=== PATIENT | female | born 1940 | race Caucasian/White ===

== ENCOUNTER 2017-08-04 12:41 | Inpatient (IN) | payer OTHER ==
[~2017-08-04] VITALS: Ht 162.6 cm; Wt 81.8 kg
[~2017-08-04 12:41] MED LIST: AMILORIDE HCL-1 EACH PO; CLARITIN10 M1 PO; CYCLOBENZAPRINE10 M1 PO; GLIPIZIDE ER5 M1 PO; GLIPIZIDE10 MG PO; ISOSORBIDE MONO30 M1 PO; LEVSIN/SL0.125 MG PO; METOPROLOL TART25 M1 PO; NEURONTIN300 M1 PO; ONGLYZA5 MG PO; OXYBUTYNIN CHLOR5 M2 PO; OXYBUTYNIN5 MG PO; PERCOCET 325 MG1 TA2 PO; PROTONIX40 M3 PO; SIMVASTATIN20 MG PO; TRAMADOL HCL50 M1 PO
--- NOTE | 2017-08-04 13:57 | ED GI/GU/ABDOMINAL COMPLAINT ---
See Addendum History of Present Illness General Chief Complaint: General Adult Stated Complaint: +V ALL NIGHT, CHILLS, LOWER BACK PAIN Source: patient Exam Limitations: no limitations Vital Signs & Intake/Output Vital Signs & Intake/Output Vital Signs Date Time Temp Pulse Resp B/P B/P Pulse O2 O2 Flow FiO2 Mean Ox Delivery Rate 08/06 0850 98.4 77 18 138/62 98 Room Air 08/06 0848 77 138/62 08/06 0000 98.2 65 18 105/61 99 Room Air Room Air 08/05 2152 72 126/55 08/05 2151 72 16/55 08/05 1600 97.9 74 20 112/58 98 Room Air 08/05 1600 99 Room Air 08/05 1200 98 Room Air ED Intake and Output 08/06 0000 08/05 1200 Intake Total 1391 170 Output Total 1200 750 Balance 191 -580 Intake, IV 281 110 Intake, Oral 1110 60 Number 0 Bowel Movements Output, Urine 1200 750 Allergies Coded Allergies: adhesive tape (RASH 05/17/16) latex (RASH 05/17/16) Triage Note: C/O LOWER BACK PAIN, LEFT FLANK PAIN, N/V CHILLS. 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 yes LMP (ages 10-50): unknown ? N Is pt currently ? No Onset: Abrupt Duration: day(s): (1), better, continues in ED Timing: single episode today Quality/Severity: aching, moderate, vomiting Location: left flank Radiation: no radiation Activities at Onset: none Prior Abdominal Problems: none Past Sexual History: Unobtainable at this time No Modifying Factors: none Associated Symptoms: abdominal pain, nausea/vomiting HPI: 77 YEAR old female past medical history of hypertension, diabetes, coronary artery disease presents for evaluation of nausea vomiting and left flank/back pain. Patient states symptoms started last night. WHEN SYMPTOMS first started she notes that she had epigastric pressure nausea vomiting sweats and chills. This gradually improved and is now gone. She is still reporting some left flank and left lower back pain and mild nausea. She has only eaten and drank a small amount today. No vomiting today. Currently no chest pain or shortness of breath no sweats or chills no urinary symptoms hematuria or fever. She's not taking any medicine for her symptoms. (Patricio WEN,Yann) Reconcile Medications Amiloride/Hydrochlorothiazide (Amiloride HCl-Hctz 5-50 MG Tab) 5 MG-50 MG TABLET 1 TAB PO DAILY HEART/BP (Reported) Ascorbic Acid (Vitamin C) 500 MG CAPSULE.ER 1 CAP PO DAILY Supplement ( Reported) Cholecalciferol (Vitamin D3) (Vitamin D) 1,000 UNIT TABLET 1 TAB PO DAILY Supplement (Reported) Cyanocobalamin (Vitamin B-12) (Vitamin B-12) 500 MCG TABLET (Unknown Dose) PO DAILY VITAMIN SUPPORT (Reported) Cyclobenzaprine HCl 10 MG TABLET 1 TAB PO PRN MUSCLE SPASMS (Reported) Gabapentin (Neurontin) 300 MG CAPSULE 2 CAP PO BID-TID NEUROPATHY (Reported) Glipizide (Glipizide ER) 5 MG TAB.ER.24 1 TAB PO BID DM (Reported) Isosorbide Mononitrate (Isosorbide Mononitrate ER) 30 MG TAB.ER.24H 0.5 TAB PO DAILY Heart (Reported) Lutein 20 MG CAPSULE 20 MG PO DAILY VITAMIN SUPPORT (Reported) Metoprolol Tartrate 25 MG TABLET 0.5 TAB PO BID Blood pressure (Reported) Multivitamin (Daily Value) 1 EACH TABLET 1 TAB PO DAILY Supplement (Reported) Rawlins-3 Fatty Acids (Fish Oil Concentrate) 1,000 MG CAPSULE 1 CAP PO DAILY Heart (Reported) Oxybutynin Chloride 5 MG TABLET 1 TAB PO QPM BLADDER (Reported) Pantoprazole Sodium (Protonix) 40 MG TABLET.DR 1 TAB PO DAILY GERD (Reported) Psyllium Husk/Aspartame (Metamucil Sugar-Free Powder) 3.4 GRAM/5.8 GRAM POWDER 1 TBSP PO QHS BOWEL HEALTH (Reported) Simvastatin (Zocor*) 20 MG TABLET 1 TAB PO QPM Cholesterol (Reported) Tramadol HCl 50 MG TABLET 1-2 TAB PO BID PRN PAIN (Reported) Vitamin E (Dl,Tocopheryl Acet) (Vitamin E) 400 UNIT CAPSULE 1 CAP PO DAILY Supplement (Reported) (Nguyen WATSON,Melony) Past History Travel History Traveled to [place] past 21 day No Medical History Any Pertinent Medical History? see below for history Neurological: NONE EENT: NONE Cardiovascular: hypertension Respiratory: NONE Gastrointestinal: GERD Hepatic: NONE Renal: NONE Musculoskeletal: osteoarthritis Psychiatric: NONE Endocrine: diabetes, NODULE ON THYROID Blood Disorders: NONE Cancer(s): NONE CLINICAL PSYCHOLOGIST LICENSED/Reproductive: NONE Surgical History Surgical History: non-contributory Psychosocial History Who do you live with Spouse Services at Home None What is your primary language Iranian Tobacco Use: Never used ETOH Use: denies use Illicit Drug Use: denies illicit drug use Family History Hx Contributory? No (Yann Pearson) Review of Systems Review of Systems Constitutional: Reports: chills, diaphoresis. EENTM: Reports: no symptoms. Respiratory: Reports: no symptoms. Cardiovascular: Reports: no symptoms. GI: Reports: see HPI, abdominal pain, nausea, vomiting. Genitourinary: Reports: no symptoms. Musculoskeletal: Reports: see HPI, back pain. Skin: Reports: no symptoms. Neurological/Psychological: Reports: no symptoms. Hematologic/Endocrine: Reports: no symptoms. Immunologic/Allergic: Reports: no symptoms. All Other Systems: Reviewed and Negative (Yann Pearson) Physical Exam Physical Exam General Appearance: well developed/nourished, no apparent distress, alert, awake Head: atraumatic, normal appearance Eyes: Bilateral: normal appearance, PERRL, EOMI, normal inspection. Ears, Nose, Throat, Mouth: hearing grossly normal, moist mucous membrane Neck: normal inspection, supple, full range of motion Respiratory: normal breath sounds, chest non-tender, no respiratory distress, lungs clear Cardiovascular: regular rate/rhythm, normal peripheral pulses Peripheral Pulses: 2+ radial (R), 2+ radial (L) Gastrointestinal: normal bowel sounds, soft, no organomegaly, MILD LEFT FLANK AND LEFT LOWER BACK TENDERNESS NO REBOUND OR GUARDING Back: normal inspection, normal range of motion, no vertebral tenderness, LEFT- SIDED LUMBAR Extremities: normal range of motion Neurologic/Psych: no motor/sensory deficits, awake, alert, oriented x 3, normal gait Skin: intact, normal color, warm/dry Core Measures ACS in differential dx? Yes Sepsis Present: No Sepsis Focused Exam Completed? No (Yann Pearson) Progress Differential Diagnosis: AAA, AMI, biliary colic, bowel obstruction, diverticulitis, gastritis, hernia, ischemic bowel, inflamm bowel dis, kidney stone, pancreatitis, PID/cervicitis, peptic ulcer, PUD/GERD, SBO, UTI/pyelo Plan of Care: Orders Procedure Date/time Status PARTIAL THROMBOPLASTIN TIME 08/06 1230 Active Transfer Disposition 08/06 0740 Active ICU LAB BUNDLE 08/06 0500 Complete CBC WITHOUT DIFFERENTIAL 08/06 0500 Complete TROPONIN LEVEL 08/06 0030 Complete PARTIAL THROMBOPLASTIN TIME 08/06 0030 Complete EKG 08/06 003 Active Transfer patient to 08/05 1852 Active Current Medications Sig/Santo Start time Last Medication Dose Stop Time Status Admin Clopidogrel Bisulfate 75 MG DAILY 08/06 1000 AC 08/06 (Plavix) 0848 Lidocaine 1 PAT DAILY 08/06 0130 AC 08/06 (Lidoderm) 0130 Isosorbide 15 MG DAILY@2200 08/05 2200 AC 08/05 Mononitrate 2152 (Imdur) Lidocaine 1 PAT DAILY PRN 08/05 1815 AC 08/06 (Lidoderm) 0910 Aspirin 81 MG DAILY 08/05 1000 AC 08/06 (Aspirin) 0847 Insulin Aspart 0 TIDAC 08/05 0800 AC 08/05 (NovoLOG) 0806 Omeprazole 40 MG DAILY AC 08/05 0700 AC 08/06 (Prilosec) 0605 Atorvastatin Calcium 10 MG 1700 08/04 2245 AC 08/05 (Lipitor) 1805 Metoprolol Tartrate 12.5 MG BID 08/04 2200 AC 08/06 (Lopressor) 0848 Oxybutynin Chloride 5 MG QPM 08/04 2200 AC 08/05 (Ditropan) 2151 Fish Oil 1,050 MG DAILY 08/04 2105 AC 08/06 (Rawlins-3) 0848 Heparin Sodium 25,000 UNIT Q24H 08/04 1800 AC 08/04 (Porcine) 1911 (Heparin) Sodium Chloride 500 ML Laboratory Tests 08/06/17 0610: Anion Gap 9, Estimated GFR > 60, Glucose 137 H, Calcium 9.1, Phosphorus 4.0, Magnesium 1.8, Total Bilirubin 0.7, AST 32, ALT 25, Albumin 3.4 L, CBC w Diff NO MAN DIFF REQ, RBC 3.20 L, MCV 94.6, MCH 33.0 H, MCHC 34.9, RDW 13.5, MPV 7.8, Gran % 48.8, Lymphocytes % 35.8, Monocytes % 9.9 H, Eosinophils % 4.4, Basophils % 1.1, Absolute Granulocytes 1.2 L, Absolute Lymphocytes 0.9 L, Absolute Monocytes 0.2, Absolute Eosinophils 0.1, Absolute Basophils 0 08/06/17 0030: Troponin I 0.43 *H, APTT 66 H 08/05/17 1715: APTT 54 H, CBC w Diff NO MAN DIFF REQ, RBC 3.74 L, MCV 94.7, MCH 31.9 H, MCHC 33.7, RDW 14.2, MPV 7.9, Gran % 63.2, Lymphocytes % 23.9, Monocytes % 8.3, Eosinophils % 3.8, Basophils % 0.8, Absolute Granulocytes 2.0, Absolute Lymphocytes 0.8 L, Absolute Monocytes 0.3, Absolute Eosinophils 0.1, Absolute Basophils 0 08/05/17 1200: CBC w Diff Cancelled, WBC Cancelled, RBC Cancelled, Hgb Cancelled, Hct Cancelled , MCV Cancelled, MCH Cancelled, MCHC Cancelled, RDW Cancelled, Plt Count Cancelled, MPV Cancelled Patient seen and evaluated. Currently she is feeling much better only reporting mild nausea and mild left flank and left lower back pain. No chest pain or shortness of breath she was able to eat and drink a little bit today. Vital signs are stable. Blood work shows a troponin of 1.41. EKG is stable without ST or T-wave changes. Patient was given 325 of aspirin. Case discussed with Dr. Anderson who is the patient's can sorter he recommends admission to the ICU. Patient will have a CTA of the chest to rule out pulmonary embolism. WIll hold off on heparinizing until then. CT scan of the abdomen and pelvis shows mild haziness in the area of the sigmoid colon with a mild diverticulitis. Patient does not have any pain in this area. She is not having any diarrhea. We'll continue to monitor patient's abdomen and try and labs. Patient will require admission to the ICU for monitoring of vital signs, telemetry, trending troponin, serial EKGs, cardiology consult, anticoagulation medication adjustment. Case discussed with Dr. Cedillo she agrees. Dr. Cedillo talked with Dr. Price to admit the patient to the ICU. Initial ED EKG: normal sinus rhythm, no ST T wave changes, LEFT AXIS DEVIATION (Black PA,Yann) Diagnostic Imaging: Viewed by Me: CT Scan. Discussed w/RAD: CT Scan. Radiology Impression: PATIENT: HANY SIMMONS PRESENT AGE: 77 PATIENT ACCOUNT NO: [id number] : 41 LOCATION: [facility] ORDERING PHYSICIAN: Yann WEN SERVICE DATE: 08/04/17 EXAM TYPE: CAT - CT ABD & PELVIS W/O IV CONTRAS EXAMINATION: CT ABDOMEN AND PELVIS WITHOUT CONTRAST CLINICAL INFORMATION: Left flank pain, low back pain. Evaluate for kidney stones , pyelonephritis. COMPARISON: 07/14/2014 TECHNIQUE: Multidetector volumetric imaging was performed from the superior aspect of the liver through the pubic symphysis. Sagittal and coronal reformatted images were obtained on the technologist's workstation. FINDINGS: LUNG BASES: The visualized lung bases are unremarkable. LIVER, GALLBLADDER, AND BILIARY TREE: The liver is normal in size, shape, and attenuation. No focal hepatic lesion or biliary ductal dilatation is present. The gallbladder is not clearly visualized, and may be contracted or surgically absent. PANCREAS: Mild fatty atrophy of the pancreas, especially the pancreatic head, appearing similar as compared to previous. No yaritza inflammatory changes are evident in the noncontrast CT. SPLEEN: Unremarkable. ADRENAL GLANDS: Unremarkable. KIDNEYS AND URETERS: Right kidney surgically absent. No abnormal soft tissue in the surgical bed. Surgical clips are noted. Left kidney measures 13.4 cm craniocaudal, measured on the sagittal sequence. No calculi are seen. No suspicious lesions in the noncontrast study. Minimal nonspecific perinephric stranding. No ureteral calculi or hydronephrosis. BLADDER: Unremarkable. GASTROINTESTINAL TRACT: Colonic diverticulosis predominantly in the sigmoid colon. Mild haziness in the fat adjacent to the distal sigmoid colon in the pelvis, may reflect mild diverticulitis/colitis. No focal fluid collections. Stomach is nondistended. Normal caliber small bowel loops. Appendix appears unremarkable, containing air. ABDOMINAL WALL: No significant hernia is appreciated. Surgical clips deep to the anterior abdominal wall. LYMPH NODES: No pathologically enlarged lymph nodes are seen in the abdomen or pelvis. VASCULAR: Mild atherosclerotic calcification of the aorta. Normal caliber aorta. PELVIC VISCERA: Pelvic organs are atrophic or surgically absent. OSSEOUS STRUCTURES: Redemonstrated apparent postoperative changes of the spinous processes of L4 and L5. Facet degeneration in the lower lumbar spine. No suspicious lytic or blastic lesions identified. IMPRESSION: 1. Sigmoid diverticulosis. Mild haziness in the fat adjacent to the distal sigmoid colon may reflect mild diverticulitis/colitis. Clinically correlate. 2. Right kidney surgically absent. No evidence of left renal calculi, suspicious lesions, or hydronephrosis. 3. No acute findings otherwise demonstrated in the abdomen or pelvis. DICTATED BY: Negro Rider MD DATE/TIME DICTATED:08/04/171447 INVENTORY TAKER:ADAN DATE/TIME TRANSCRIBED:08/04/171447 CONFIDENTIAL, DO NOT COPY WITHOUT APPROPRIATE AUTHORIZATION. <Electronically signed in Other Vendor System> SIGNED BY: Negro Rider MD 08/04/17 7317 (Melony Cedillo MD) Departure Departure Disposition: STILL A PATIENT Condition: Stable Clinical Impression Primary Impression: Non-STEMI (non-ST elevated myocardial infarction) Referrals: Angelo Price MD (PCP/Family) Departure Forms: Customer Survey General Discharge Information Admission Note Spoke With: Angelo Price MD Documentation of Exam: Documentation of any treatments & extenuating circumstances including Concerns Regarding Discharge (functional status, medication knowledge or non-compliance, living conditions, etc.) that warrant an admission rather than observation: [ Serial troponins, serial EKGs, telemetry, cardiology consult, echocardiogram, cardiac cath, IV heparin] (Yann Pearson) PA/MECHANICAL ENGINEERING TECHNICIAN Co-Sign Statement Statement: ED Attending supervision documentation- [X] I saw and evaluated the patient. I have also reviewed all the pertinent lab results and diagnostic results. I agree with the findings and the plan of care as documented in the PA's/MECHANICAL ENGINEERING TECHNICIAN's documentation. [X] I have reviewed the ED Record and agree with the PA's/MECHANICAL ENGINEERING TECHNICIAN's documentation. [] Additions or exceptions (if any) to the PAs/MECHANICAL ENGINEERING TECHNICIAN's note and plan are summarized below: [] Patient seen and examined with the resident. Positive troponin after episode of epigastric/chest pain yesterday. No acute EKG changes to warrant Inspector [employer] transfer. Patient seen by Dr. Anderson in the ER who recommended ICU admission. CT chest and her grandma ordered. Discussed with Dr. Price. Currently patient has no chest pain shortness of breath. She denies any shoulder or neck pain which she had yesterday. She is well-appearing (Melony Cedillo MD)
[2017-08-04 13:59] LABS: ABSOLUTE BASOPHIL COUNT 0 /CUMM (0.0-0.2); ABSOLUTE EOSINOPHIL COUNT 0.1 /CUMM (0.0-0.7); ABSOLUTE GRANULOCYTE CT 3.4 /CUMM (1.4-6.5); ABSOLUTE LYMPH COUNT 0.6 /CUMM (1.2-3.4); ABSOLUTE MONOCYTE COUNT 0.3 /CUMM (0.10-0.60); BASOPHIL % 0.6 % (0.0-2.0); EOSINOPHIL % 1.3 % (0-5); GRANULOCYTE % 78.5 % (42.2-75.2); HEMATOCRIT 35.6 % (37-47); MEAN CORPUSCULAR HGB CONC 35.3 G/DL (33.0-37.0); MEAN CORPUSCULAR VOLUME 93.6 FL (81.0-99.0); MEAN PLATELET VOLUME 7.6 FL (7.4-10.4); PLATELET COUNT 195 /CUMM (130-400); RBC DISTRIBUTION WIDTH 13.7 % (11.5-14.5); RED BLOOD CELL CT 3.81 /CUMM (4.20-5.40); WHITE BLOOD CELL COUNT 4.3 /CUMM (4.8-10.8)
--- NOTE | 2017-08-04 15:33 | RADIOLOGY REPORT ---
EXAMINATION: XR PORTABLE CHEST CLINICAL INFORMATION: Positive troponin. COMPARISON: Chest radiograph 03/09/2016. TECHNIQUE: Portable frontal view of the chest was obtained. FINDINGS: The lungs are clear without consolidation, edema, or effusion. There is no pneumothorax. The cardiomediastinal silhouette appears normal. There are degenerative changes at the bilateral shoulder joints. IMPRESSION: No active disease in the chest.
[2017-08-04 15:51] LABS: PT 12.8 SEC (9.4-12.5); PTT 30 SEC (25-37)
--- NOTE | 2017-08-04 15:57 | CT SCAN REPORT ---
EXAMINATION: CT ABDOMEN AND PELVIS WITHOUT CONTRAST CLINICAL INFORMATION: Left flank pain, low back pain. Evaluate for kidney stones, pyelonephritis. COMPARISON: 07/14/2014 TECHNIQUE: Multidetector volumetric imaging was performed from the superior aspect of the liver through the pubic symphysis. Sagittal and coronal reformatted images were obtained on the technologist's workstation. FINDINGS: LUNG BASES: The visualized lung bases are unremarkable. LIVER, GALLBLADDER, AND BILIARY TREE: The liver is normal in size, shape, and attenuation. No focal hepatic lesion or biliary ductal dilatation is present. The gallbladder is not clearly visualized, and may be contracted or surgically absent. PANCREAS: Mild fatty atrophy of the pancreas, especially the pancreatic head, appearing similar as compared to previous. No yaritza inflammatory changes are evident in the noncontrast CT. SPLEEN: Unremarkable. ADRENAL GLANDS: Unremarkable. KIDNEYS AND URETERS: Right kidney surgically absent. No abnormal soft tissue in the surgical bed. Surgical clips are noted. Left kidney measures 13.4 cm craniocaudal, measured on the sagittal sequence. No calculi are seen. No suspicious lesions in the noncontrast study. Minimal nonspecific perinephric stranding. No ureteral calculi or hydronephrosis. BLADDER: Unremarkable. GASTROINTESTINAL TRACT: Colonic diverticulosis predominantly in the sigmoid colon. Mild haziness in the fat adjacent to the distal sigmoid colon in the pelvis, may reflect mild diverticulitis/colitis. No focal fluid collections. Stomach is nondistended. Normal caliber small bowel loops. Appendix appears unremarkable, containing air. ABDOMINAL WALL: No significant hernia is appreciated. Surgical clips deep to the anterior abdominal wall. LYMPH NODES: No pathologically enlarged lymph nodes are seen in the abdomen or pelvis. VASCULAR: Mild atherosclerotic calcification of the aorta. Normal caliber aorta. PELVIC VISCERA: Pelvic organs are atrophic or surgically absent. OSSEOUS STRUCTURES: Redemonstrated apparent postoperative changes of the spinous processes of L4 and L5. Facet degeneration in the lower lumbar spine. No suspicious lytic or blastic lesions identified. IMPRESSION: 1. Sigmoid diverticulosis. Mild haziness in the fat adjacent to the distal sigmoid colon may reflect mild diverticulitis/colitis. Clinically correlate. 2. Right kidney surgically absent. No evidence of left renal calculi, suspicious lesions, or hydronephrosis. 3. No acute findings otherwise demonstrated in the abdomen or pelvis.
--- NOTE | 2017-08-04 17:21 | History & Physical ---
Sonia Vidales 08/04/17 1721: General Information and HPI MD Statement: I have seen and personally examined HANY SIMMONS and documented this H&P. Source of Information: patient Exam Limitations: no limitations History of Present Illness: This is a 77-year-old lady with past medical history significant for GERD with chronic cough, lung nodule, type 2 diabetes, hypertension, hyperlipidemia, colon polyps, nontoxic simple goiter, fibromyalgia, bladder incontinence, squamous cell carcinoma of skin, spinal stenosis, right nephrectomy who presents to the hospital for further evaluation of epigastric pain, nausea, vomiting, chills which occurred last night. According to the patient, she started experiencing nausea last night had episodes of vomiting and experienced epigastric chest pressure/pain after each vomiting. Also had some chills and felt lightheaded however did not pass out. She attributed her symptoms to her GERD and took some Tums which improved symptoms. Later on she contacted her PCP who recommended her to go to the ED for further evaluation. At the time of our interview, patient reports feeling cold, had to use multiple blankets. She denies having any headache, dizziness, lightheadedness, chest pain, abdominal pain, urinary symptoms. She denies EtOH, tobacco, or illicit drug use. The patient follows with her chemistry account manager Dr. Anderson as outpatient, she states that she saw Dr. Anderson in at that time echo was performed which was normal, carotid ultrasound was also done which showed worsening of left-side plaque. Allergies/Medications Allergies: Coded Allergies: adhesive tape (RASH 05/17/16) latex (RASH 05/17/16) Past History Travel History Traveled to [place] past 21 day No Medical History Neurological: NONE EENT: NONE Cardiovascular: hypertension Respiratory: NONE Gastrointestinal: GERD Hepatic: NONE Renal: NONE Musculoskeletal: osteoarthritis Psychiatric: NONE Endocrine: diabetes, NODULE ON THYROID Blood Disorders: NONE Cancer(s): NONE BUILDING INSPECTOR/Reproductive: NONE Surgical History Surgical History: non-contributory Past Family/Social History Psychosocial History Services at Home: None ETOH Use: denies use Illicit Drug Use: denies illicit drug use Sexual History Past Sexual History Unobtainable at this time Review of Systems Review of Systems Constitutional: Reports: chills. Denies: diaphoresis, fever, malaise, weakness, unexplained weight loss. EENTM: Reports: no symptoms. Cardiovascular: Denies: chest pain, edema, orthopena, palpitations, peripheral edema, syncope. Respiratory: Reports: cough (chronic ). Denies: hemoptysis, orthopnea, short of breath, sputum production, stridor, wheezing. GI: Reports: no symptoms. Genitourinary: Reports: no symptoms. Musculoskeletal: Reports: back pain. Skin: Reports: no symptoms. Neurological/Psychological: Reports: no symptoms. Hematologic/Endocrine: Reports: no symptoms. Immunologic/Allergic: Reports: no symptoms. Exam & Diagnostic Data Last 24 Hrs of Vital Signs/I&O Vital Signs Date Time Temp Pulse Resp B/P B/P Pulse O2 O2 Flow FiO2 Mean Ox Delivery Rate 08/04 2030 97.5 86 18 135/70 97 Room Air Room Air 08/04 2010 98.0 91 18 120/74 08/04 1728 97.2 84 18 138/74 97 Room Air Room Air 08/04 1523 97.0 78 18 131/61 97 Room Air Room Air 08/04 1246 96.5 91 20 129/70 96 Room Air Intake & Output 08/04 1600 08/04 0800 08/04 0000 Intake Total 1000 Output Total Balance 1000 Intake, IV 1000 Patient 175 lb Weight Weight Reported by Patient Measurement Method Physical Exam General Appearance Alert, Oriented X3, Cooperative, No Acute Distress Skin No Rashes, No Breakdown, No Significant Lesion Skin Temp/Moisture Exam: Warm/Dry Sepsis Skin Exam (color): Normal for Ethnicity HEENT Atraumatic, PERRLA, EOMI, Mucous Membr. moist/pink Neck Supple, No JVD, No thryomegaly, +2 Carotid Pulse wo Bruit, No LAD Lymphatic Cervical nl Cardiovascular Regular Rate, Normal S1, Normal S2, No Murmurs, Gallops, Rubs Lungs Clear to Auscultation, Normal Air Movement Abdomen Normal Bowel Sounds, Soft, No Tenderness, No Hepatospenomegaly, No Masses Neurological Normal Speech, Strength at 5/5 X4 Ext, Normal Tone, Sensation Intact, Cranial Nerves 3-12 NL, Reflexes 2+ Extremities No Clubbing, No Cyanosis, No Edema, Normal Pulses, No Tenderness/ Swelling Vascular Normal Pulses, Pulses Symmetrical Rectal Guiac Negative Last 24 Hrs of Labs/[place]: Laboratory Tests 08/04/172044: Troponin I Pending 03/09/18 1814: Urine Color YEL, Urine Clarity CLEAR, Urine pH 7.0, Ur Specific E[place] <= 1.005 , Urine Protein NEG, Urine Ketones NEG, Urine Nitrite NEG, Urine Bilirubin NEG, Urine Urobilinogen 0.2, Ur Leukocyte Esterase TRACE H, Ur Microscopic SEDIMENT EXAMINED, Urine RBC RARE, Urine WBC 1-3 H, Ur Epithelial Cells RARE, Urine Hemoglobin NEG, Urine Glucose NEG 08/04/17 1350: Anion Gap 11, Estimated GFR > 60, BUN/Creatinine Ratio 22.2, Glucose 143 H, Lactic Acid 0.9, Calcium 9.6, Total Bilirubin 1.4 H, AST 43 H, ALT 27, Alkaline Phosphatase 80, Troponin I 1.41 *H, Total Protein 7.5, Albumin 4.4, Globulin 3.1, Albumin/Globulin Ratio 1.4, Lipase 30, PT 12.8 H, INR 1.17, APTT 30, CBC w Diff NO MAN DIFF REQ, RBC 3.81 L, MCV 93.6, MCH 33.0 H, MCHC 35.3, RDW 13.7, MPV 7.6, Gran % 78.5 H, Lymphocytes % 13.5 L, Monocytes % 6.1, Eosinophils % 1.3, Basophils % 0.6, Absolute Granulocytes 3.4, Absolute Lymphocytes 0.6 L, Absolute Monocytes 0.3, Absolute Eosinophils 0.1, Absolute Basophils 0 Microbiology 08/04 1845 BLOOD: Blood Culture - RECD 08/04 183 BLOOD: Blood Culture - RECD 08/04 182 UPPER RESP: Surveillance Culture - COLB 08/04 182 GI: Surveillance Culture - COLB 08/04 181 URINE ROUT: Urine Culture - RECD Diagnostic Data EKG Results Sinus rhythm, rate 77, left axis deviation, no significant ST-T wave abnormalities. No significant change compared to prior EKG. CXR Results No active disease in the chest. Other Results Chest CTA: IMPRESSION: 1. No evidence of pulmonary embolism. No acute change of chest. 2. Stable subcentimeter pulmonary nodules unchanged since CAT scan 10/22/2010. These are benign. No further imaging is suggested. VTE: Negative Assessment/Plan Assessment: This is a 77-year-old lady with past medical history significant for GERD with chronic cough, lung nodule, type 2 diabetes, hypertension, hyperlipidemia, colon polyps, nontoxic simple goiter, fibromyalgia, bladder incontinence, squamous cell carcinoma of skin, spinal stenosis, right nephrectomy who presents to the hospital for further evaluation of epigastric pain, nausea, vomiting, chills which occurred last night. While in the ED, she was noted to have elevated troponin to 1.41 that any significant EKG changes. Problem list #Possible NSTEMI #Nausea, vomiting, shaking chills #Elevated bilirubin #Hypertension, hyperlipidemia #Diabetes #Diverticulosis #GERD #Lung nodules;stable Plan * Monitor in the ICU * Serial troponins and EKGs * Echocardiogram * CTA negative for PE * Will obtain blood culture and urine cultures * Has received a full dose aspirin in the ED, will start her on low-dose aspirin from tomorrow * Will continue beta marianne and statin and fish oil, Imdur * The patient was evaluated by chemistry account manager in the ED recommended to start IV heparin without a bolus * She states that she does not take Onglyza anymore. Will maintain her on Accu- Cheks and insulin sliding scale. * Will recheck LFTs in the morning * DVT prophylaxis: Being addressed by IV heparin * Patient is full code As Ranked By This Provider Problem List: 1. Non-STEMI (non-ST elevated myocardial infarction) Core Measures/Misc (02/12) Acute Coronary Syndrome ACS Diagnosis: Yes Congestive Heart Failure Congestive Heart Failure Diagnosis No Cerebrovascular Accident CVA/TIA Diagnosis: No VTE (View Protocol) VTE Risk Factors Age>40 No Mechanical VTE Prophylaxis d/t N/A MechProphylax Ordered No VTE Pharm Prophylaxis d/t NA PharmProphylax ordered Sepsis (View protocol) Sepsis Present: No [facility] 08[facility]04/17 6876: General Information and HPI Allergies/Medications Home Med list Amiloride/Hydrochlorothiazide (Amiloride HCl-Hctz 5-50 MG Tab) 5 MG-50 MG TABLET 1 TAB PO DAILY HEART/BP (Reported) Ascorbic Acid (Vitamin C) 500 MG CAPSULE.ER 1 CAP PO DAILY Supplement ( Reported) Cholecalciferol (Vitamin D3) (Vitamin D) 1,000 UNIT TABLET 1 TAB PO DAILY Supplement (Reported) Cyanocobalamin (Vitamin B-12) (Vitamin B-12) 500 MCG TABLET (Unknown Dose) PO DAILY VITAMIN SUPPORT (Reported) Cyclobenzaprine HCl 10 MG TABLET 1 TAB PO PRN MUSCLE SPASMS (Reported) Gabapentin (Neurontin) 300 MG CAPSULE 2 CAP PO BID-TID NEUROPATHY (Reported) Glipizide (Glipizide ER) 5 MG TAB.ER.24 1 TAB PO BID DM (Reported) Isosorbide Mononitrate (Isosorbide Mononitrate ER) 30 MG TAB.ER.24H 0.5 TAB PO DAILY Heart (Reported) Lutein 20 MG CAPSULE 20 MG PO DAILY VITAMIN SUPPORT (Reported) Metoprolol Tartrate 25 MG TABLET 0.5 TAB PO BID Blood pressure (Reported) Multivitamin (Daily Value) 1 EACH TABLET 1 TAB PO DAILY Supplement (Reported) [place]-3 Fatty Acids (Fish Oil Concentrate) 1,000 MG CAPSULE 1 CAP PO DAILY Heart (Reported) Oxybutynin Chloride 5 MG TABLET 1 TAB PO QPM BLADDER (Reported) Pantoprazole Sodium (Protonix) 40 MG TABLET.DR 1 TAB PO DAILY GERD (Reported) Psyllium Husk/Aspartame (Metamucil Sugar-Free Powder) 3.4 GRAM/5.8 GRAM POWDER 1 TBSP PO QHS BOWEL HEALTH (Reported) Simvastatin (Zocor*) 20 MG TABLET 1 TAB PO QPM Cholesterol (Reported) Tramadol HCl 50 MG TABLET 1-2 TAB PO BID PRN PAIN (Reported) Vitamin E (Dl,Tocopheryl Acet) (Vitamin E) 400 UNIT CAPSULE 1 CAP PO DAILY Supplement (Reported) Attending MD Review Statement Attending Statement Attending MD Statement: examined this patient, discuss w/resident/PA/ICU CLERK, agreed w/resident/PA/ICU CLERK, discussed with family, reviewed EMR data (avail), discussed with nursing, discussed with case mgmt, reviewed images, amended to note Attending Assessment/Plan: This is a lady with the history of GERD, chronic cough due to GERD, previous lung nodule which has been benign, diabetes type 2 on oral hypoglycemic agent, previous colon polyp and diverticulosis, previous nontoxic goiter, morbid obesity, hypertension, fibromyalgia, chronic bladder incontinence, spinal stenosis, previous history of nephrectomy, hypertension and on and off chest discomfort followed by cardiology on Imdur and low-dose metoprolol, now comes in with history of significant shaking chills at home with multiple episodes of vomiting. This morning she continued to have a queasy feeling in her abdomen and some lower chest discomfort. And she was advised to come to the emergency room. In the emergency room she did have a CTA of the chest which did not reveal any pulmonary embolism and her CT abdomen and pelvis was done which did not reveal any significant acute pathology. And patient was found to have elevated troponin with no significant EKG changes and she is being admitted to the hospital. Agree with above history review of symptoms and physical exam Issues * Elevated troponin with no significant EKG changes with occasional chest discomfort in a lady with diabetes. Non-ST segment elevation [place] needs to be ruled out and she needs to be admitted to the hospital. * Persistent vomiting lasting for 12 hours with shaking chills. Differential diagnosis is broad. Symptoms seem to have resolved. Patient may have had gastroenteritis versus other pathology. She will be clinically watch. No evidence of sepsis at this time * Significant diverticulosis with some evidence suggestive of diverticulitis. But clinically she does not have any symptoms this needs to be watched and evaluated. We'll watch her off antibiotics * Previous history of nephrectomy, hypertension, chest discomfort, bladder incontinence, GERD, hyperlipidemia and nonsmoker. High risk for significant ischemic heart * Elevated bilirubin which needs follow-up. No clinical evidence suggestive of obstructive physiology and a biliary tract. Patient has had a cholecystectomy in the past and the CT abdomen did not reveal any dilated ducts * Diabetes on oral hypoglycemics stable * Urinary incontinence rule out UTI * Previous history of spinal stenosis with surgery in the past, chronic pain, fibromyalgia which is stable * Lung nodule in the past which is also stable. RECOMMENDATIONS/PLAN * Admit to ICU * Heparin per cardiology * Echocardiogram / cardio eval * Continue her statin, aspirin and low-dose beta marianne * Imdur if her blood pressure permits * Panculture including urine culture and watch her off antibiotics * Hold oral sulfonylurea and use insulin if needed and cont onglyza * Repeat LFTs in the morning * If she does have a high fever or shaking chills etc. we will start her on antibiotics (Unasyn) * Urinalysis with culture * Serial EKG and troponin * Echocardiogram Discussed with the patient and family
--- NOTE | 2017-08-04 17:24 | CT SCAN REPORT ---
EXAMINATION: CT ANGIOGRAM CHEST WITH AND WITHOUT CONTRAST (CT PULMONARY ANGIOGRAM FOR PE) CLINICAL INFORMATION: Positive trop, left flank and left back pain. COMPARISON: Chest x-ray 08/04/2017. TECHNIQUE: Prior to contrast administration, noncontrast localization images were obtained. Subsequently, multidetector volumetric imaging was performed from the thoracic inlet to below the diaphragms following the administration of 80 mL Omnipaque 350 intravenous contrast. No contrast reaction reported. Sagittal, coronal, and MIP oblique sagittal reformatted images were obtained on the CT workstation, uploaded to PACS, and reviewed. Total exam dose-length product 359.33 mGy-cm. FINDINGS: QUALITY OF STUDY/CONTRAST BOLUS: Satisfactory PULMONARY ARTERIES: No central or segmental pulmonary emboli. THORACIC AORTA: No aneurysm or dissection. LUNG: There is no infiltrate. No interstitial or reticular opacity. No bronchiectasis. The central bronchial airways are open. There are small lung nodules. The lung nodules are stable and unchanged since CAT scan of 10/22/2010 with no additional imaging suggested. Largest lung nodules: 1. There are 2 small adjacent lung nodules measuring about 3 mm in the right upper lobe peripherally, sagittal image 223 and 228. 2. There is a 4 mm nodule with associated linear scarring in the right lower lobe, axial image 32 (3). 3. There is a 5 mm nodule in the right middle lobe, sagittal image 205. There are additional scattered 1 to 2 mm sized lung nodules in both lungs. PLEURA: No pleural effusion or pneumothorax. MEDIASTINUM: Normal heart size. No pericardial effusion. No hilar or mediastinal lymphadenopathy. No evidence of septal bowing or right heart strain. CHEST WALL/AXILLA: No axillary or internal mammary lymphadenopathy. OSSEOUS STRUCTURES: Degenerative spondylosis of the spine with multilevel endplate spurring of the vertebrae. Degenerative joint disease of the glenohumeral joints of both shoulders with joint narrowing and small periarticular calcifications. UPPER ABDOMEN: Unremarkable. No reflux of contrast into the hepatic veins to suggest elevated right heart pressures. IMPRESSION: 1. No evidence of pulmonary embolism. No acute change of chest. 2. Stable subcentimeter pulmonary nodules unchanged since CAT scan 10/22/2010. These are benign. No further imaging is suggested. VTE: Negative
[2017-08-04] MEDS ORDERED: ZOCOR20 M1 PO (19:04)
--- NOTE | 2017-08-04 19:34 | Cons- Cardiology ---
General Information and HPI Consulting Request Date of Consult: 08/04/17 Requested By: Dee WATSON,Angelo Staton Reason for Consult: Elevated troponin Source of Information: patient, family, old records Exam Limitations: no limitations History of Present Illness: the patient is a 77-year-old female who is well-known to me. Her past medical history is remarkable for hypertension, diabetes, coronary disease, etc. The patient is now admitted to the hospital via the emergency room for evaluation of her cardiac status due to an elevated troponin. Apparently, yesterday, the patient had symptoms of epigastric pressure with nausea vomiting sweats and a sense of chills. She continues to feel cold. She also had some left shoulder/arm discomfort and left neck discomfort. Today, the patient continued to feel cold. She has not had any further discomfort today. No further vomiting. in the emergency room, the patient was noted to have an elevated troponin. Her ECG shows no acute abnormalities however. Allergies/Medications Allergies: Coded Allergies: adhesive tape (RASH 05/17/16) latex (RASH 05/17/16) Home Med List: Amiloride/Hydrochlorothiazide (Amiloride HCl-Hctz 5-50 MG Tab) 5 MG-50 MG TABLET 1 TAB PO DAILY HEART/BP (Reported) Ascorbic Acid (Vitamin C) 500 MG CAPSULE.ER 1 CAP PO DAILY Supplement ( Reported) Cholecalciferol (Vitamin D3) (Vitamin D) 1,000 UNIT TABLET 1 TAB PO DAILY Supplement (Reported) Cyanocobalamin (Vitamin B-12) (Vitamin B-12) 500 MCG TABLET (Unknown Dose) PO DAILY VITAMIN SUPPORT (Reported) Cyclobenzaprine HCl 10 MG TABLET 1 TAB PO PRN MUSCLE SPASMS (Reported) Gabapentin (Neurontin) 300 MG CAPSULE 2 CAP PO BID-TID NEUROPATHY (Reported) Glipizide (Glipizide ER) 5 MG TAB.ER.24 1 TAB PO BID DM (Reported) Isosorbide Mononitrate (Isosorbide Mononitrate ER) 30 MG TAB.ER.24H 0.5 TAB PO DAILY Heart (Reported) Lutein 20 MG CAPSULE 20 MG PO DAILY VITAMIN SUPPORT (Reported) Metoprolol Tartrate 25 MG TABLET 0.5 TAB PO BID Blood pressure (Reported) Multivitamin (Daily Value) 1 EACH TABLET 1 TAB PO DAILY Supplement (Reported) [place]-3 Fatty Acids (Fish Oil Concentrate) 1,000 MG CAPSULE 1 CAP PO DAILY Heart (Reported) Oxybutynin Chloride 5 MG TABLET 1 TAB PO QPM BLADDER (Reported) Pantoprazole Sodium (Protonix) 40 MG TABLET.DR 1 TAB PO DAILY GERD (Reported) Psyllium Husk/Aspartame (Metamucil Sugar-Free Powder) 3.4 GRAM/5.8 GRAM POWDER 1 TBSP PO QHS BOWEL HEALTH (Reported) Simvastatin (Zocor*) 20 MG TABLET 1 TAB PO QPM Cholesterol (Reported) Tramadol HCl 50 MG TABLET 1-2 TAB PO BID PRN PAIN (Reported) Vitamin E (Dl,Tocopheryl Acet) (Vitamin E) 400 UNIT CAPSULE 1 CAP PO DAILY Supplement (Reported) Current Medications: Current Medications Sig/[place] Start time Last Medication Dose Route Stop Time Status Admin Aspirin 325 MG ONCE ONE 08/04 1500 DC 08/04 PO 08/04 1501 1522 Aspirin 0 .STK-MED ONE 08/04 1453 DC PO Heparin Sodium 25,000 UNIT Q24H 08/04 1800 AC 08/04 (Porcine) IV 1911 Sodium Chloride 500 ML Insulin Aspart 0 TIDAC 08/05 0800 UNVr SC Isosorbide 15 MG DAILY 08/04 1905 UNVr Mononitrate PO Metoprolol Tartrate 12.5 MG BID 08/04 2200 UNVr PO Omeprazole 40 MG DAILY AC 08/05 0700 UNVr PO Sodium Chloride 1,000 ML BOLUS ONE 08/04 1400 DC 08/04 IV 08/04 1459 1522 Past History Travel History Traveled to [place] past 21 day No Medical History Neurological: NONE EENT: NONE Cardiovascular: hypertension Respiratory: NONE Gastrointestinal: GERD Hepatic: NONE Renal: NONE Musculoskeletal: osteoarthritis Psychiatric: NONE Endocrine: diabetes, NODULE ON THYROID Blood Disorders: NONE Cancer(s): NONE GUIDE DOMESTIC TOUR/Reproductive: NONE Surgical History Surgical History: non-contributory Psychosocial History Services at Home: None ETOH Use: denies use Illicit Drug Use: denies illicit drug use Exam & Diagnostic Data Vital Signs and I&O Vital Signs Date Time Temp Pulse Resp B/P B/P Pulse O2 O2 Flow FiO2 Mean Ox Delivery Rate 08/05 0800 97.9 76 18 128/70 99 Room Air 08/05 0800 99 Room Air 08/05 0400 98 Room Air Room Air 08/05 0000 98 Room Air Room Air 08/04 2300 97.3 80 23 120/88 98 Room Air Room Air 08/043 90 116/56 08/040 97 Room Air 08/04 2129 97.9 84 24 126/52 97 Room Air 08/04 2031 97.5 86 18 135/70 97 Room Air Room Air 08/04 2010 98.0 91 18 120/74 08/04 1728 97.2 84 18 138/74 97 Room Air Room Air 08/04 1523 97.0 78 18 131/61 97 Room Air Room Air 08/04 1246 96.5 91 20 129/70 96 Room Air Intake & Output 08/05 1600 08/05 0808/05 0000 08/04 1600 08/04 0800 08/04 0000 Intake Total 225 401 6984 Output Total 750 0 Balance -737 117 8300 Intake, IV 661 59 4595 Intake, Oral 60 120 Number 0 Bowel Movements Output, Urine 750 0 Patient 180 lb 175 lb Weight Weight Bed scale Reported by Patient Measurement Method Physical Exam: General Appearance Alert, Oriented X3, Cooperative, No Acute Distress Skin NormalY HEENT Atraumatic, PERRLA, EOMI, Mucous Membr. moist/pink Neck Supple, No JVD, No thryomegaly, +2 Carotid Pulse wo Bruit, No LADright now wellhe later Cardiovascular Regular Rate, Normal S1, Normal S2, 1/6 systolic murmur Lungs Clear to Auscultation and percussion bilaterally Abdomen Normal Bowel Sounds, Soft, No Tenderness, No Hepatospenomegaly, No Masses Neurological Normal / nonfocal Extremities No Clubbing, No Cyanosis, No Edema, Normal Pulses, No Tenderness/ Swelling Vascular Normal Pulses, Pulses Symmetrical Labs/[place] Results: Laboratory Tests 08/05 08/05 08/05 0915 0628 0133 Chemistry Sodium (137 - 145 mmol/L) 142 Potassium (3.5 - 5.1 mmol/L) 3.6 Chloride (98 - 107 mmol/L) 103 Carbon Dioxide (22 - 30 mmol/L) 27 Anion Gap (5 - 16) 11 BUN (7 - 17 mg/dL) 16 Creatinine (0.5 - 1.0 mg/dL) 0.7 Estimated GFR (>60 ml/min) > 60 Glucose (65 - 99 mg/dL) 144 H Calcium (8.4 - 10.2 mg/dL) 9.0 Phosphorus (2.5 - 4.5 mg/dL) 3.9 Magnesium (1.6 - 2.3 mg/dL) 1.9 Total Bilirubin (0.2 - 1.3 mg/dL) 0.8 Direct Bilirubin (< 0.4 mg/dL) 0.2 AST (14 - 36 U/L) 32 ALT (9 - 52 U/L) 35 Alkaline Phosphatase (<127 U/L) 77 Troponin I (< 0.11 ng/ml) 0.86 *H Total Protein (6.3 - 8.2 g/dL) 6.1 L Albumin (3.5 - 5.0 g/dL) 3.5 Coagulation APTT (25 - 37 SEC) Pending > 120 *H Hematology CBC w Diff NO MAN DIFF REQ WBC (4.8 - 10.8 /CUMM) 2.5 L RBC (4.20 - 5.40 /CUMM) 3.29 L Hgb (12.0 - 16.0 G/DL) 10.6 L Hct (37 - 47 %) 31.0 L MCV (81.0 - 99.0 FL) 94.3 MCH (27.0 - 31.0 PG) 32.3 H MCHC (33.0 - 37.0 G/DL) 34.3 RDW (11.5 - 14.5 %) 14.0 Plt Count (130 - 400 /CUMM) 154 MPV (7.4 - 10.4 FL) 8.2 Gran % (42.2 - 75.2 %) 64.0 Lymphocytes % (20.5 - 51.1 %) 21.9 Monocytes % (1.7 - 9.3 %) 10.5 H Eosinophils % (0 - 5 %) 2.9 Basophils % (0.0 - 2.0 %) 0.7 Absolute Granulocytes (1.4 - 6.5 /CUMM) 1.6 Absolute Lymphocytes (1.2 - 3.4 /CUMM) 0.5 L Absolute Monocytes (0.10 - 0.60 /CUMM) 0.3 Absolute Eosinophils (0.0 - 0.7 /CUMM) 0.1 Absolute Basophils (0.0 - 0.2 /CUMM) 0 08/04 1814 Chemistry Troponin I (< 0.11 ng/ml) 1.15 *H Urines Urine Color (YEL,AMB,STR) YEL Urine Clarity (CLEAR) CLEAR Urine pH (5.0 - 8.0) 7.0 Ur Specific [place] (1.001 - 1.035) <= 1.005 Urine Protein (NEG,<30 MG/DL) NEG Urine Ketones (NEG) NEG Urine Nitrite (NEG) NEG Urine Bilirubin (NEG) NEG Urine Urobilinogen (0.1 - 1.0 EU/dl) 0.2 Ur Leukocyte Esterase (NEG) TRACE H Ur Microscopic SEDIMENT EXAMINED Urine RBC (0 - 5 /HPF) RARE Urine WBC (0 - 2 /HPF) 1-3 H Ur Epithelial Cells (NONE,FEW) RARE Urine Hemoglobin (NEG) NEG Urine Glucose (N MG/DL) NEG 08/04 1350 Chemistry Sodium (137 - 145 mmol/L) 138 Potassium (3.5 - 5.1 mmol/L) 3.5 Chloride (98 - 107 mmol/L) 96 L Carbon Dioxide (22 - 30 mmol/L) 31 H Anion Gap (5 - 16) 11 BUN (7 - 17 mg/dL) 20 H Creatinine (0.5 - 1.0 mg/dL) 0.9 Estimated GFR (>60 ml/min) > 60 BUN/Creatinine Ratio (7 - 25 %) 22.2 Glucose (65 - 99 mg/dL) 143 H Lactic Acid (0.7 - 2.1 mmol/L) 0.9 Calcium (8.4 - 10.2 mg/dL) 9.6 Total Bilirubin (0.2 - 1.3 mg/dL) 1.4 H AST (14 - 36 U/L) 43 H ALT (9 - 52 U/L) 27 Alkaline Phosphatase (<127 U/L) 80 Troponin I (< 0.11 ng/ml) 1.41 *H Total Protein (6.3 - 8.2 g/dL) 7.5 Albumin (3.5 - 5.0 g/dL) 4.4 Globulin (1.9 - 4.2 gm/dL) 3.1 Albumin/Globulin Ratio (1.1 - 2.2 %) 1.4 Lipase (23 - 300 U/L) 30 Coagulation PT (9.4 - 12.5 SEC) 12.8 H INR (0.90 - 1.19) 1.17 APTT (25 - 37 SEC) 30 Hematology CBC w Diff NO MAN DIFF REQ WBC (4.8 - 10.8 /CUMM) 4.3 L RBC (4.20 - 5.40 /CUMM) 3.81 L Hgb (12.0 - 16.0 G/DL) 12.6 Hct (37 - 47 %) 35.6 L MCV (81.0 - 99.0 FL) 93.6 MCH (27.0 - 31.0 PG) 33.0 H MCHC (33.0 - 37.0 G/DL) 35.3 RDW (11.5 - 14.5 %) 13.7 Plt Count (130 - 400 /CUMM) 195 MPV (7.4 - 10.4 FL) 7.6 Gran % (42.2 - 75.2 %) 78.5 H Lymphocytes % (20.5 - 51.1 %) 13.5 L Monocytes % (1.7 - 9.3 %) 6.1 Eosinophils % (0 - 5 %) 1.3 Basophils % (0.0 - 2.0 %) 0.6 Absolute Granulocytes (1.4 - 6.5 /CUMM) 3.4 Absolute Lymphocytes (1.2 - 3.4 /CUMM) 0.6 L Absolute Monocytes (0.10 - 0.60 /CUMM) 0.3 Absolute Eosinophils (0.0 - 0.7 /CUMM) 0.1 Absolute Basophils (0.0 - 0.2 /CUMM) 0 Diagnostic Data EKG Results NSR with no significant change from prior ECG CXR Results FINDINGS: The lungs are clear without consolidation, edema, or effusion. There is no pneumothorax. The cardiomediastinal silhouette appears normal. There are degenerative changes at the bilateral shoulder joints. IMPRESSION: No active disease in the chest. Other Results CTA Chest: FINDINGS: QUALITY OF STUDY/CONTRAST BOLUS: Satisfactory PULMONARY ARTERIES: No central or segmental pulmonary emboli. THORACIC AORTA: No aneurysm or dissection. LUNG: There is no infiltrate. No interstitial or reticular opacity. No bronchiectasis. The central bronchial airways are open. There are small lung nodules. The lung nodules are stable and unchanged since CAT scan of 10/22/2010 with no additional imaging suggested. Largest lung nodules: 1. There are 2 small adjacent lung nodules measuring about 3 mm in the right upper lobe peripherally, sagittal image 223 and 228. 2. There is a 4 mm nodule with associated linear scarring in the right lower lobe, axial image 32 (3). 3. There is a 5 mm nodule in the right middle lobe, sagittal image 205. There are additional scattered 1 to 2 mm sized lung nodules in both lungs. PLEURA: No pleural effusion or pneumothorax. MEDIASTINUM: Normal heart size. No pericardial effusion. No hilar or mediastinal lymphadenopathy. No evidence of septal bowing or right heart strain. CHEST WALL/AXILLA: No axillary or internal mammary lymphadenopathy. OSSEOUS STRUCTURES: Degenerative spondylosis of the spine with multilevel endplate spurring of the vertebrae. Degenerative joint disease of the glenohumeral joints of both shoulders with joint narrowing and small periarticular calcifications. UPPER ABDOMEN: Unremarkable. No reflux of contrast into the hepatic veins to suggest elevated right heart pressures. IMPRESSION: 1. No evidence of pulmonary embolism. No acute change of chest. 2. Stable subcentimeter pulmonary nodules unchanged since CAT scan 10/22/2010. These are benign. No further imaging is suggested. Assessment/Plan Assessment/Plan Assessment: 1. Elevated troponin with symptoms suggestive of ischemia-at the moment, and review the patient's risk factors, I think we must assume that the patient may have had a non-ST elevation infarct. Other possibilities remain to be excluded. 2. Systemic symptoms suggestive of possible infection 3. elevated bilirubin 4. History of hypertension 5. History of diabetes 6. History of reflux disease 7. Diverticulosis with evidence of possible mild diverticulitis on CT scan 8. Atherosclerotic vascular disease Recommendations: -Admit patient to ICU -Continue cardiac monitoring -Serial troponins until decreasing -Serial ECGs -Echocardiogram to reassess left ventricular function and wall motion -Full cultures pending -decisions about antibiotics as per Dr. Price -Further plans from a cardiac standpoint depending on the above. Decisions about possible noninvasive nuclear stress testing versus cardiac catheterization will be made after the echo and initial evaluation are reviewed. If the patient has any further symptoms, cardiac catheterization may be necessary. -IV heparin to be started with no bolus; maintain therapeutic PTT. -Continue metoprolol, isosorbide, statin, etc. Consult Acknowledgment - Thank you for your consult request.
[2017-08-04] MEDS ORDERED: VITAMIN C500 M7 PO (21:03)
[2017-08-04] MEDS ORDERED: DAILY VALUE1 EACH PO (21:03)
[2017-08-04] MEDS ORDERED: FISH OIL CONC1000 M1 PO (21:03)
[2017-08-04] MEDS ORDERED: VITAMIN D1000 UNIT PO (21:04)
[2017-08-04] MEDS ORDERED: VITAMIN E400 UNI1 PO (21:04)
[2017-08-04 21:30] VITALS: BP 126/52
[2017-08-04 23:00] VITALS: BP 120/88
[2017-08-05 02:57] LABS: PTT > 120 SEC (25-37)
[2017-08-05 07:34] LABS: ABSOLUTE BASOPHIL COUNT 0 /CUMM (0.0-0.2); ABSOLUTE EOSINOPHIL COUNT 0.1 /CUMM (0.0-0.7); ABSOLUTE GRANULOCYTE CT 1.6 /CUMM (1.4-6.5); ABSOLUTE LYMPH COUNT 0.5 /CUMM (1.2-3.4); ABSOLUTE MONOCYTE COUNT 0.3 /CUMM (0.10-0.60); BASOPHIL % 0.7 % (0.0-2.0); EOSINOPHIL % 2.9 % (0-5); MEAN CORPUSCULAR HGB 32.3 PG (27.0-31.0); MEAN CORPUSCULAR HGB CONC 34.3 G/DL (33.0-37.0); MEAN CORPUSCULAR VOLUME 94.3 FL (81.0-99.0); MEAN PLATELET VOLUME 8.2 FL (7.4-10.4); PLATELET COUNT 154 /CUMM (130-400); RED BLOOD CELL CT 3.29 /CUMM (4.20-5.40); WHITE BLOOD CELL COUNT 2.5 /CUMM (4.8-10.8)
[2017-08-05 08:00] VITALS: BP 128/70
[2017-08-05] MEDS ORDERED: LUTEIN20 M3 PO (08:11)
[2017-08-05] MEDS ORDERED: VITAMIN B-12500 MC2 PO (08:12)
[2017-08-05] MEDS ORDERED: METAMUCIL SUGA283 GM PO (08:13)
--- NOTE | 2017-08-05 08:33 | Cons- CRCU ---
General Information and HPI Consulting Request Date of Consult: 08/05/17 Requested By: Dr. Zabala Reason for Consult: elevated trops Source of Information: patient, family, old records Exam Limitations: no limitations History of Present Illness: This is a 77-year-old lady with past medical history significant for GERD with chronic cough, lung nodule, type 2 diabetes, hypertension, hyperlipidemia, colon polyps, nontoxic simple goiter, fibromyalgia, bladder incontinence, squamous cell carcinoma of skin, spinal stenosis, right nephrectomy who presents to the hospital for further evaluation of epigastric pain, nausea, vomiting, chills which occurred last night. According to the patient, she started experiencing nausea last night had episodes of vomiting and experienced epigastric chest pressure/pain after each vomiting. Also had some chills and felt lightheaded however did not pass out. She attributed her symptoms to her GERD and took some Tums which improved symptoms. Later on she contacted her PCP who recommended her to go to the ED for further evaluation. At the time of our interview, patient reports feeling cold, had to use multiple blankets. She denies having any headache, dizziness, lightheadedness, chest pain, abdominal pain, urinary symptoms. She denies EtOH, tobacco, or illicit drug use. The patient follows with her fish warden Dr. Anderson as outpatient, she states that she saw Dr. Anderson in at that time echo was performed which was normal, carotid ultrasound was also done which showed worsening of left-side plaque. Allergies/Medications Allergies: Coded Allergies: adhesive tape (RASH 05/17/16) latex (RASH 05/17/16) Home Med List: Amiloride/Hydrochlorothiazide (Amiloride HCl-Hctz 5-50 MG Tab) 5 MG-50 MG TABLET 1 TAB PO DAILY HEART/BP (Reported) Ascorbic Acid (Vitamin C) 500 MG CAPSULE.ER 1 CAP PO DAILY Supplement ( Reported) Cholecalciferol (Vitamin D3) (Vitamin D) 1,000 UNIT TABLET 1 TAB PO DAILY Supplement (Reported) Cyanocobalamin (Vitamin B-12) (Vitamin B-12) 500 MCG TABLET (Unknown Dose) PO DAILY VITAMIN SUPPORT (Reported) Cyclobenzaprine HCl 10 MG TABLET 1 TAB PO PRN MUSCLE SPASMS (Reported) Gabapentin (Neurontin) 300 MG CAPSULE 2 CAP PO BID-TID NEUROPATHY (Reported) Glipizide (Glipizide ER) 5 MG TAB.ER.24 1 TAB PO BID DM (Reported) Isosorbide Mononitrate (Isosorbide Mononitrate ER) 30 MG TAB.ER.24H 0.5 TAB PO DAILY Heart (Reported) Lutein 20 MG CAPSULE 20 MG PO DAILY VITAMIN SUPPORT (Reported) Metoprolol Tartrate 25 MG TABLET 0.5 TAB PO BID Blood pressure (Reported) Multivitamin (Daily Value) 1 EACH TABLET 1 TAB PO DAILY Supplement (Reported) [place]-3 Fatty Acids (Fish Oil Concentrate) 1,000 MG CAPSULE 1 CAP PO DAILY Heart (Reported) Oxybutynin Chloride 5 MG TABLET 1 TAB PO QPM BLADDER (Reported) Pantoprazole Sodium (Protonix) 40 MG TABLET.DR 1 TAB PO DAILY GERD (Reported) Psyllium Husk/Aspartame (Metamucil Sugar-Free Powder) 3.4 GRAM/5.8 GRAM POWDER 1 TBSP PO QHS BOWEL HEALTH (Reported) Simvastatin (Zocor*) 20 MG TABLET 1 TAB PO QPM Cholesterol (Reported) Tramadol HCl 50 MG TABLET 1-2 TAB PO BID PRN PAIN (Reported) Vitamin E (Dl,Tocopheryl Acet) (Vitamin E) 400 UNIT CAPSULE 1 CAP PO DAILY Supplement (Reported) Current Medications: Current Medications Sig/Santo Start time Last Medication Dose Route Stop Time Status Admin Aspirin 81 MG DAILY 08/05 1000 AC 08/05 PO 1057 Aspirin 325 MG ONCE ONE 08/04 1500 DC 08/04 PO 08/04 1501 1522 Aspirin 0 .STK-MED ONE 08/04 1453 DC PO Atorvastatin Calcium 10 MG 1700 08/04 2245 AC 08/05 PO 0004 Atorvastatin Calcium 40 MG 1700 08/04 2115 DC PO Atorvastatin Calcium 40 MG 1700 08/04 2100 CAN PO Fish Oil 1,050 MG DAILY 08/04 2105 AC 08/05 PO 1056 Heparin Sodium 4,900 UNIT ONE ONE 08/05 1100 DC (Porcine) IV 08/05 1101 Heparin Sodium 25,000 UNIT Q24H 08/04 1800 AC 08/04 (Porcine) IV 1911 Sodium Chloride 500 ML Insulin Aspart 0 TIDAC 08/05 0800 AC 08/05 SC 0806 Isosorbide 15 MG DAILY@2200 08/05 2200 AC Mononitrate PO Isosorbide 15 MG DAILY 08/04 1905 DC 08/04 Mononitrate PO 2010 Metoprolol Tartrate 12.5 MG BID 08/040 AC 08/05 PO 1057 Omeprazole 40 MG DAILY AC 08/05 0700 AC 08/05 PO 0646 Oxybutynin Chloride 5 MG QPM 08/04 2200 AC 08/04 PO 2252 Sodium Chloride 1,000 ML BOLUS ONE 08/04 1400 DC 08/04 IV 08/04 1459 1522 Review of Systems Review of Systems Constitutional: Reports: chills, diaphoresis. Denies: fever, weakness. EENTM: Reports: no symptoms. Cardiovascular: Denies: chest pain, palpitations. Respiratory: Denies: cough, short of breath. GI: Reports: no symptoms. Genitourinary: Reports: no symptoms. Musculoskeletal: Reports: no symptoms. Skin: Reports: no symptoms. Past History Travel History Traveled to [place] past 21 day No Medical History Blood Transfusion Hx: No Neurological: FIBROMYALGIA EENT: NONE Cardiovascular: NSTEMI Respiratory: NONE Gastrointestinal: diverticulitis, GERD Hepatic: NONE Renal: nephrectomy Musculoskeletal: osteoarthritis, spinal stenosis Psychiatric: NONE Endocrine: diabetes, NODULE ON THYROID Blood Disorders: NONE Cancer(s): SQUAMOUS CELL CA PRISON PSYCHIATRIST/Reproductive: NONE Surgical History Surgical History: cholecystectomy, hysterectomy, RIGHT NEPHRECTOMY HERNIA REPAIR SPINAL FUSION Psychosocial History Where Do You Live? Home Services at Home: None Smoking Status: Former Smoker ETOH Use: denies use Illicit Drug Use: denies illicit drug use Exam & Diagnostic Data Last 24 Hrs of Vital Signs/I&O Vital Signs Date Time Temp Pulse Resp B/P B/P Pulse O2 O2 Flow FiO2 Mean Ox Delivery Rate 08/05 1200 98 Room Air 08/05 1057 77 114/60 08/05 0800 97.9 76 18 128/70 99 Room Air 08/05 0800 99 Room Air 08/05 0400 98 Room Air Room Air 08/05 0000 98 Room Air Room Air 08/04 2300 97.3 80 23 120/88 98 Room Air Room Air 08/04 2253 90 116/56 08/040 97 Room Air 08/040 97.9 84 24 126/52 97 Room Air 08/04 2031 97.5 86 18 135/70 97 Room Air Room Air 08/04 2010 98.0 91 18 120/74 08/04 1728 97.2 84 18 138/74 97 Room Air Room Air 08/04 1523 97.0 78 18 131/61 97 Room Air Room Air Intake & Output 08/05 1600 08/05 0800 08/05 0000 Intake Total 170 184 Output Total 750 0 Balance -580 184 Intake, IV 110 64 Intake, Oral 60 120 Number 0 Bowel Movements Output, Urine 750 0 Patient 81.76 kg Weight Weight Bed scale Measurement Method Physical Exam General Appearance: well developed/nourished, no apparent distress, alert, awake , comfortable Head: normal appearance Eyes: Bilateral: normal appearance, PERRL, EOMI. Ears, Nose, Throat: normal pharynx Neck: normal inspection, supple, full range of motion Respiratory: normal breath sounds, chest non-tender Cardiovascular: regular rate/rhythm Gastrointestinal: normal bowel sounds, soft, non-tender Extremities: normal capillary refill, no edema Last 48 Hrs of Labs/[place]: Laboratory Tests 08/05/17 1200: CBC w Diff Cancelled, WBC Cancelled, RBC Cancelled, Hgb Cancelled, Hct Cancelled , MCV Cancelled, MCH Cancelled, MCHC Cancelled, RDW Cancelled, Plt Count Cancelled, MPV Cancelled 08/05/17 0915: APTT 31 08/05/17 0628: Anion Gap 11, Estimated GFR > 60, Glucose 144 H, Calcium 9.0, Phosphorus 3.9, Magnesium 1.9, Total Bilirubin 0.8, Direct Bilirubin 0.2, AST 32, ALT 35, Alkaline Phosphatase 77, Total Protein 6.1 L, Albumin 3.5, CBC w Diff NO MAN DIFF REQ, RBC 3.29 L, MCV 94.3, MCH 32.3 H, MCHC 34.3, RDW 14.0, MPV 8.2, Gran % 64.0, Lymphocytes % 21.9, Monocytes % 10.5 H, Eosinophils % 2.9, Basophils % 0.7, Absolute Granulocytes 1.6, Absolute Lymphocytes 0.5 L, Absolute Monocytes 0.3, Absolute Eosinophils 0.1, Absolute Basophils 0 08/05/17 0133: Troponin I 0.86 *H, APTT > 120 *H 08/04/172044: Troponin I 1.15 *H 08/04/17 1814: Urine Color YEL, Urine Clarity CLEAR, Urine pH 7.0, Ur Specific [place] <= 1.005 , Urine Protein NEG, Urine Ketones NEG, Urine Nitrite NEG, Urine Bilirubin NEG, Urine Urobilinogen 0.2, Ur Leukocyte Esterase TRACE H, Ur Microscopic SEDIMENT EXAMINED, Urine RBC RARE, Urine WBC 1-3 H, Ur Epithelial Cells RARE, Urine Hemoglobin NEG, Urine Glucose NEG 08/04/17 1350: Anion Gap 11, Estimated GFR > 60, BUN/Creatinine Ratio 22.2, Glucose 143 H, Lactic Acid 0.9, Calcium 9.6, Total Bilirubin 1.4 H, AST 43 H, ALT 27, Alkaline Phosphatase 80, Troponin I 1.41 *H, Total Protein 7.5, Albumin 4.4, Globulin 3.1, Albumin/Globulin Ratio 1.4, Lipase 30, PT 12.8 H, INR 1.17, APTT 30, CBC w Diff NO MAN DIFF REQ, RBC 3.81 L, MCV 93.6, MCH 33.0 H, MCHC 35.3, RDW 13.7, MPV 7.6, Gran % 78.5 H, Lymphocytes % 13.5 L, Monocytes % 6.1, Eosinophils % 1.3, Basophils % 0.6, Absolute Granulocytes 3.4, Absolute Lymphocytes 0.6 L, Absolute Monocytes 0.3, Absolute Eosinophils 0.1, Absolute Basophils 0 Assessment/Plan CRCU Impression/Plan: ASSESSMENT:This is a 77 yo female with PMH of GERD with cough, T2 DM, HTN, HLD, CAD, simple goiter, incontinence, fibromyalgia, squamous cell ca of skin, spinal stenosis, r nephrectomy, colonic polyps, lung nodules who comes in for CC of N/V / with rigors and diaphoresis for half a day. ED work up showed benign CT abdomen and pelvis and CTA chest. However, she did have Trop of 1.41 without any EKG changes. Pt no longer complains of any chest pain/pressure, abdominal pain, diarrhea, nausea or vomiting but she does complain of intermittent profuse diaphoresis. PLAN NSTEMI: Pt has no EKG changes and no longer had chest pain or discomfort. She is currently on a heparin drip. Trops have trended down to .86. * Monitor on tele * Echo pending * Possibility for noninvasive testing vs cath per cardiology * Con't Heparin drip * Con't Metoprolol * Con't Isosorbide * Con't Statin * Con't ASA * Appreciate cardio consult Nausea, vomiting, shaking chills: Pt no longer symptomatic. Blood cx x 2 NGTD; Ucx NGTD. Likely viral gastroenteritis. Not on any abx. * Con't monitor Leukopenia: WBC was 4.3 yesterday. Today down to 2.5. No prior hx of low WBC. It is possible that low WBC is sign of infection. But pt is clinically better and afebrile. CXR WNL, CTA shows chronic nodules (See below), CT abd/pelvis benign. BCX, UCX ON 08/04 NGTD. * Monitor CBC * Monitor off abx; but if clinically worsens will consider Unasyn Hypertension: Chronic and stable. * Cont Imdur and Metoprolol Diabetes: A1C in 2017 was 6.2. * She no longer takes Onglyza. Hospital only carries Januvia. * Hold Glipizide * RISS * CC diet Elevated bilirubin: RESOLVED. WNL today Lung nodules: Per CTA-1. No evidence of pulmonary embolism. No acute change of chest. 2. Stable subcentimeter pulmonary nodules unchanged since CAT scan 10/22/2010. These are benign. No further imaging is suggested. * Out pt follow up. FC HH diet chem dvt ppx Consult Acknowledgment - Thank you for your consult request.
--- NOTE | 2017-08-05 08:38 | PN- CRCU ---
Subjective HPI/Critical Care Issues: Doing much better No chest pain or abdominal pain Hemodynamically stable Continues to be normal sinus rhythm. Vital signs stable room air sats adequate Continues to be on heparin drip Adequate urine output noted Review of symptoms otherwise unremarkable Blood work reviewed as noted Troponin has reduced to 0.86 White count has come down to 2.5 hemoglobin down to 10.6 which needs to be monitored platelets seems to be adequate PTT is more than 120 which needs to be readjusted Potassium 3.6 CAT scan reviewed Objective Current Medications: Current Medications Sig/Santo Start time Last Medication Dose Route Stop Time Status Admin Aspirin 81 MG DAILY 08/05 1000 AC PO Aspirin 325 MG ONCE ONE 08/04 1500 DC 08/04 PO 08/04 1501 1522 Aspirin 0 .STK-MED ONE 08/04 1453 DC PO Atorvastatin Calcium 10 MG 1700 08/04 2245 AC 08/05 PO 0004 Atorvastatin Calcium 40 MG 1700 08/04 2115 DC PO Atorvastatin Calcium 40 MG 1700 08/04 2100 CAN PO Fish Oil 1,050 MG DAILY 08/04 2105 AC 08/04 PO 2253 Heparin Sodium 25,000 UNIT Q24H 08/04 1800 AC 08/04 (Porcine) IV 1911 Sodium Chloride 500 ML Insulin Aspart 0 TIDAC 08/05 0800 AC 08/05 SC 0806 Isosorbide 15 MG DAILY 08/04 1905 AC 08/04 Mononitrate PO 2011 Metoprolol Tartrate 12.5 MG BID 08/04 2200 AC 08/04 PO 2253 Omeprazole 40 MG DAILY AC 08/05 0700 AC 08/05 PO 0646 Oxybutynin Chloride 5 MG QPM 08/04 2200 AC 08/04 PO 2252 Sodium Chloride 1,000 ML BOLUS ONE 08/04 1400 DC 08/04 IV 08/04 1459 1522 Vital Signs & I&O Last 24 Hrs of Vitals and I&O: Vital Signs Date Time Temp Pulse Resp B/P B/P Pulse O2 O2 Flow FiO2 Mean Ox Delivery Rate 08/05 0400 98 Room Air Room Air 08/05 0000 98 Room Air Room Air 08/04 2300 97.3 80 23 120/88 98 Room Air Room Air 08/04 2253 90 116/56 08/04 2129 97 Room Air 08/04 2129 97.9 84 24 126/52 97 Room Air 08/04 2030 97.5 86 18 135/70 97 Room Air Room Air 08/04 2010 98.0 91 18 120/74 08/04 1728 97.2 84 18 138/74 97 Room Air Room Air 08/04 1523 97.0 78 18 131/61 97 Room Air Room Air 08/04 1246 96.5 91 20 129/70 96 Room Air Intake & Output 08/05 1600 08/05 0800 08/05 0000 Intake Total 170 184 Output Total 750 0 Balance -580 184 Intake, IV 110 64 Intake, Oral 60 120 Number 0 Bowel Movements Output, Urine 750 0 Patient 180 lb Weight Weight Bed scale Measurement Method Laboratory Tests 08/05 08/05 08/04 0628 0133 2045 Chemistry Sodium (137 - 145 mmol/L) 142 Potassium (3.5 - 5.1 mmol/L) 3.6 Chloride (98 - 107 mmol/L) 103 Carbon Dioxide (22 - 30 mmol/L) 27 Anion Gap (5 - 16) 11 BUN (7 - 17 mg/dL) 16 Creatinine (0.5 - 1.0 mg/dL) 0.7 Estimated GFR (>60 ml/min) > 60 Glucose (65 - 99 mg/dL) 144 H Calcium (8.4 - 10.2 mg/dL) 9.0 Phosphorus (2.5 - 4.5 mg/dL) 3.9 Magnesium (1.6 - 2.3 mg/dL) 1.9 Total Bilirubin (0.2 - 1.3 mg/dL) 0.8 Direct Bilirubin (< 0.4 mg/dL) 0.2 AST (14 - 36 U/L) 32 ALT (9 - 52 U/L) 35 Alkaline Phosphatase (<127 U/L) 77 Troponin I (< 0.11 ng/ml) 0.86 *H 1.15 *H Total Protein (6.3 - 8.2 g/dL) 6.1 L Albumin (3.5 - 5.0 g/dL) 3.5 Coagulation APTT (25 - 37 SEC) > 120 *H Hematology CBC w Diff NO MAN DIFF REQ WBC (4.8 - 10.8 /CUMM) 2.5 L RBC (4.20 - 5.40 /CUMM) 3.29 L Hgb (12.0 - 16.0 G/DL) 10.6 L Hct (37 - 47 %) 31.0 L MCV (81.0 - 99.0 FL) 94.3 MCH (27.0 - 31.0 PG) 32.3 H MCHC (33.0 - 37.0 G/DL) 34.3 RDW (11.5 - 14.5 %) 14.0 Plt Count (130 - 400 /CUMM) 154 MPV (7.4 - 10.4 FL) 8.2 Gran % (42.2 - 75.2 %) 64.0 Lymphocytes % (20.5 - 51.1 %) 21.9 Monocytes % (1.7 - 9.3 %) 10.5 H Eosinophils % (0 - 5 %) 2.9 Basophils % (0.0 - 2.0 %) 0.7 Absolute Granulocytes (1.4 - 6.5 /CUMM) 1.6 Absolute Lymphocytes (1.2 - 3.4 /CUMM) 0.5 L Absolute Monocytes (0.10 - 0.60 /CUMM) 0.3 Absolute Eosinophils (0.0 - 0.7 /CUMM) 0.1 Absolute Basophils (0.0 - 0.2 /CUMM) 0 08/04 08/04 1814 1350 Chemistry Sodium (137 - 145 mmol/L) 138 Potassium (3.5 - 5.1 mmol/L) 3.5 Chloride (98 - 107 mmol/L) 96 L Carbon Dioxide (22 - 30 mmol/L) 31 H Anion Gap (5 - 16) 11 BUN (7 - 17 mg/dL) 20 H Creatinine (0.5 - 1.0 mg/dL) 0.9 Estimated GFR (>60 ml/min) > 60 BUN/Creatinine Ratio (7 - 25 %) 22.2 Glucose (65 - 99 mg/dL) 143 H Lactic Acid (0.7 - 2.1 mmol/L) 0.9 Calcium (8.4 - 10.2 mg/dL) 9.6 Total Bilirubin (0.2 - 1.3 mg/dL) 1.4 H AST (14 - 36 U/L) 43 H ALT (9 - 52 U/L) 27 Alkaline Phosphatase (<127 U/L) 80 Troponin I (< 0.11 ng/ml) 1.41 *H Total Protein (6.3 - 8.2 g/dL) 7.5 Albumin (3.5 - 5.0 g/dL) 4.4 Globulin (1.9 - 4.2 gm/dL) 3.1 Albumin/Globulin Ratio (1.1 - 2.2 %) 1.4 Lipase (23 - 300 U/L) 30 Coagulation PT (9.4 - 12.5 SEC) 12.8 H INR (0.90 - 1.19) 1.17 APTT (25 - 37 SEC) 30 Hematology CBC w Diff NO MAN DIFF REQ WBC (4.8 - 10.8 /CUMM) 4.3 L RBC (4.20 - 5.40 /CUMM) 3.81 L Hgb (12.0 - 16.0 G/DL) 12.6 Hct (37 - 47 %) 35.6 L MCV (81.0 - 99.0 FL) 93.6 MCH (27.0 - 31.0 PG) 33.0 H MCHC (33.0 - 37.0 G/DL) 35.3 RDW (11.5 - 14.5 %) 13.7 Plt Count (130 - 400 /CUMM) 195 MPV (7.4 - 10.4 FL) 7.6 Gran % (42.2 - 75.2 %) 78.5 H Lymphocytes % (20.5 - 51.1 %) 13.5 L Monocytes % (1.7 - 9.3 %) 6.1 Eosinophils % (0 - 5 %) 1.3 Basophils % (0.0 - 2.0 %) 0.6 Absolute Granulocytes (1.4 - 6.5 /CUMM) 3.4 Absolute Lymphocytes (1.2 - 3.4 /CUMM) 0.6 L Absolute Monocytes (0.10 - 0.60 /CUMM) 0.3 Absolute Eosinophils (0.0 - 0.7 /CUMM) 0.1 Absolute Basophils (0.0 - 0.2 /CUMM) 0 Urines Urine Color (YEL,AMB,STR) YEL Urine Clarity (CLEAR) CLEAR Urine pH (5.0 - 8.0) 7.0 Ur Specific [place] (1.001 - 1.035) <= 1.005 Urine Protein (NEG,<30 MG/DL) NEG Urine Ketones (NEG) NEG Urine Nitrite (NEG) NEG Urine Bilirubin (NEG) NEG Urine Urobilinogen (0.1 - 1.0 EU/dl) 0.2 Ur Leukocyte Esterase (NEG) TRACE H Ur Microscopic SEDIMENT EXAMINED Urine RBC (0 - 5 /HPF) RARE Urine WBC (0 - 2 /HPF) 1-3 H Ur Epithelial Cells (NONE,FEW) RARE Urine Hemoglobin (NEG) NEG Urine Glucose (N MG/DL) NEG Microbiology Date/Time Procedure - Status Source Growth 08/04 2114 Surveillance Culture - RECD UPPER RESP 08/04 2114 Surveillance Culture - RECD GI 08/04 1844 Blood Culture - RECD BLOOD 08/04 1838 Blood Culture - RECD BLOOD 08/04 181 Urine Culture - RES URINE ROUT Impression/Plan Impression/Plan Impression/Plan: General Appearance Alert, Oriented X3, Cooperative, No Acute Distress Skin No Rashes, No Breakdown, No Significant Lesion Skin Temp/Moisture Exam: Warm/Dry Sepsis Skin Exam (color): Normal for Ethnicity HEENT Atraumatic, PERRLA, EOMI, Mucous Membr. moist/pink Neck Supple, No JVD, No thryomegaly, +2 Carotid Pulse wo Bruit, No LAD Lymphatic Cervical nl Cardiovascular Regular Rate, Normal S1, Normal S2, No Murmurs, Gallops, Rubs Lungs Clear to Auscultation, Normal Air Movement Abdomen Normal Bowel Sounds, Soft, No Tenderness, No Hepatospenomegaly, No Masses Neurological Normal Speech, Strength at 5/5 X4 Ext, Normal Tone, Sensation Intact, Cranial Nerves 3-12 NL, Reflexes 2+ Extremities No Clubbing, No Cyanosis, No Edema, Normal Pulses, No Tenderness/ Swelling Vascular Normal Pulses, Pulses Symmetrical Rectal Guiac Negative IMPRESSION This is a lady with the history of GERD, chronic cough due to GERD, previous lung nodule which has been benign, diabetes type 2 on oral hypoglycemic agent, previous colon polyp and diverticulosis, previous nontoxic goiter, morbid obesity, hypertension, fibromyalgia, chronic bladder incontinence, spinal stenosis, previous history of nephrectomy, hypertension and on and off chest discomfort followed by cardiology on Imdur and low-dose metoprolol, now comes in with history of significant shaking chills at home with multiple episodes of vomiting. This morning she continued to have a queasy feeling in her abdomen and some lower chest discomfort. And she was advised to come to the emergency room. In the emergency room she did have a CTA of the chest which did not reveal any pulmonary embolism and her CT abdomen and pelvis was done which did not reveal any significant acute pathology. And patient was found to have elevated troponin with no significant EKG changes Issues * Elevated troponin with no significant EKG changes with occasional chest discomfort in a lady with diabetes. Prob Non-ST segment elevation IA, needs to be eval and cardio consult appretiated * HIstory of vomiting prior to admission lasting for 12 hours with shaking chills. Differential diagnosis is broad. Symptoms seem to have resolved. Patient may have had gastroenteritis versus other pathology. No evidence of sepsis at this time * Significant diverticulosis with some evidence suggestive of diverticulitis. But clinically she does not have any symptoms this needs to be watched and evaluated. We'll watch her off antibiotics * Previous history of nephrectomy, hypertension, chest discomfort, bladder incontinence, GERD, hyperlipidemia and nonsmoker. High risk for significant ischemic heart disease * Resolved Elevated bilirubin, imaging nil acute * Diabetes on oral hypoglycemics stable * Urinary incontinence rule out UTI * Previous history of spinal stenosis with surgery in the past, chronic pain, fibromyalgia which is stable * Lung nodule in the past which is also stable. RECOMMENDATIONS/PLAN * Serial ekg * Check cbc at noon to eval hemoglobin and wbc * Serial troponin and ekg * ECho * Heparin per cardiology * Echocardiogram / cardio eval * Continue her statin, aspirin and low-dose beta marianne and imdur * Watch off abx and await cultures * Hold oral sulfonylurea and use insulin if needed and cont onglyza * If she does have a high fever or shaking chills etc. we will start her on antibiotics (Unasyn) Discussed with the patient and family If stable ok to tele if ok with cardio
[2017-08-05 10:49] LABS: PTT 31 SEC (25-37)
[2017-08-05 16:00] VITALS: BP 112/58
[2017-08-05 18:06] LABS: ABSOLUTE BASOPHIL COUNT 0 /CUMM (0.0-0.2); ABSOLUTE EOSINOPHIL COUNT 0.1 /CUMM (0.0-0.7); ABSOLUTE LYMPH COUNT 0.8 /CUMM (1.2-3.4); ABSOLUTE MONOCYTE COUNT 0.3 /CUMM (0.10-0.60); BASOPHIL % 0.8 % (0.0-2.0); EOSINOPHIL % 3.8 % (0-5); GRANULOCYTE % 63.2 % (42.2-75.2); HEMATOCRIT 35.4 % (37-47); MEAN CORPUSCULAR HGB 31.9 PG (27.0-31.0); MEAN CORPUSCULAR HGB CONC 33.7 G/DL (33.0-37.0); MEAN CORPUSCULAR VOLUME 94.7 FL (81.0-99.0); MEAN PLATELET VOLUME 7.9 FL (7.4-10.4); PLATELET COUNT 187 /CUMM (130-400); RBC DISTRIBUTION WIDTH 14.2 % (11.5-14.5); RED BLOOD CELL CT 3.74 /CUMM (4.20-5.40); WHITE BLOOD CELL COUNT 3.2 /CUMM (4.8-10.8)
[2017-08-05 18:14] LABS: PTT 54 SEC (25-37)
--- NOTE | 2017-08-05 18:20 | PN- Cardiology ---
Subjective Subjective: * No chest pain or shortness of breath. * troponon is coming down Objective Vital Signs and I&Os Vital Signs Date Time Temp Pulse Resp B/P B/P Pulse O2 O2 Flow FiO2 Mean Ox Delivery Rate 08/05 1600 97.9 74 20 112/58 98 Room Air 08/05 1600 99 Room Air 08/05 1200 98 Room Air 08/05 1057 77 114/60 08/05 0800 97.9 76 18 128/70 99 Room Air 08/05 0800 99 Room Air 08/05 0400 98 Room Air Room Air 08/05 0000 98 Room Air Room Air 08/04 2300 97.3 80 23 120/88 98 Room Air Room Air 08/04 2253 90 116/56 08/04 2130 97 Room Air 08/04 2130 97.9 84 24 126/52 97 Room Air Intake & Output 08/05 1600 08/05 0800 03/10 0000 08/04 1600 08/04 0800 08/04 0000 Intake Total 832 704 044 4312 Output Total 850 750 0 Balance -18 -515 683 1150 Intake, IV 112 533 93 2305 Intake, Oral 720 60 120 Number 0 Bowel Movements Output, Urine 850 750 0 Patient 180 lb 175 lb Weight Weight Bed scale Reported by Patient Measurement Method Physical Exam: General: WD/WN female in NAD; alert and oriented Neck: no JVD Heart: RRR lungs: clear Etremities: no edema Assessment/Plan Assessment/Plan * Patient is doing better. Continue aspirin and IV heparin. Begin Plavix 75mg daily. Continue Metoprolol, Lipitor and Isosorbide. Persistent ECG changes. Would consider cardiac catheteriation. * Obtain an echocardiogram. Continue telemetry? Yes
[2017-08-06] VITALS: BP 105/61
[2017-08-06 00:58] LABS: PTT 66 SEC (25-37)
[2017-08-06 06:46] LABS: ABSOLUTE BASOPHIL COUNT 0 /CUMM (0.0-0.2); ABSOLUTE EOSINOPHIL COUNT 0.1 /CUMM (0.0-0.7); ABSOLUTE GRANULOCYTE CT 1.2 /CUMM (1.4-6.5); ABSOLUTE LYMPH COUNT 0.9 /CUMM (1.2-3.4); ABSOLUTE MONOCYTE COUNT 0.2 /CUMM (0.10-0.60); BASOPHIL % 1.1 % (0.0-2.0); EOSINOPHIL % 4.4 % (0-5); GRANULOCYTE % 48.8 % (42.2-75.2); MEAN CORPUSCULAR HGB CONC 34.9 G/DL (33.0-37.0); MEAN CORPUSCULAR VOLUME 94.6 FL (81.0-99.0); MEAN PLATELET VOLUME 7.8 FL (7.4-10.4); PLATELET COUNT 172 /CUMM (130-400); RBC DISTRIBUTION WIDTH 13.5 % (11.5-14.5); WHITE BLOOD CELL COUNT 2.4 /CUMM (4.8-10.8)
[2017-08-06 06:50] LABS: HEMATOCRIT 30.3 % (37-47)
[2017-08-06 08:50] VITALS: BP 138/62
--- NOTE | 2017-08-06 13:55 | PN- Att Addend ---
Attending Addendum Attending Brief Note Patient seen/examined bedside. Patient denies any new complaints. She is on iv heparin drip for NSTEMI. VITALS 98.4 HR 77 138/62 98 RA. Labd and imaging noted. IMPRESSION 1. Elevated troponin with no significant EKG changes with occasional chest discomfort in a lady with diabetes. Prob Non-ST segment elevation [place], cardio consulted and cath as per cardiology. 2. HIstory of vomiting Symptoms seem to have resolved. 3. Significant diverticulosis with some evidence suggestive of diverticulitis. We'll watch her off antibiotics 4. Previous history of nephrectomy, hypertension, chest discomfort, bladder incontinence, GERD, hyperlipidemia and nonsmoker. High risk for significant ischemic heart disease 5. Resolved Elevated bilirubin, imaging nil acute 6. Diabetes on oral hypoglycemics stable 7. Urinary incontinence rule out UTI 8. Previous history of spinal stenosis with surgery in the past, chronic pain, fibromyalgia which is stable 9. Lung nodule in the past which is also stable. Plan of care d/wed patient bedside and follow cardiology. Admission Lab Results I reviewed the following labs: Laboratory Tests 08/06 08/06 08/06 1310 0610 0030 Chemistry Sodium (137 - 145 mmol/L) 139 Potassium (3.5 - 5.1 mmol/L) 3.5 Chloride (98 - 107 mmol/L) 104 Carbon Dioxide (22 - 30 mmol/L) 26 Anion Gap (5 - 16) 9 BUN (7 - 17 mg/dL) 17 Creatinine (0.5 - 1.0 mg/dL) 0.7 Estimated GFR (>60 ml/min) > 60 Glucose (65 - 99 mg/dL) 137 H Calcium (8.4 - 10.2 mg/dL) 9.1 Phosphorus (2.5 - 4.5 mg/dL) 4.0 Magnesium (1.6 - 2.3 mg/dL) 1.8 Total Bilirubin (0.2 - 1.3 mg/dL) 0.7 AST (14 - 36 U/L) 32 ALT (9 - 52 U/L) 25 Troponin I (< 0.11 ng/ml) 0.43 *H Albumin (3.5 - 5.0 g/dL) 3.4 L Coagulation APTT (25 - 37 SEC) Pending 66 H Hematology CBC w Diff NO MAN DIFF REQ WBC (4.8 - 10.8 /CUMM) 2.4 L RBC (4.20 - 5.40 /CUMM) 3.20 L Hgb (12.0 - 16.0 G/DL) 10.6 L Hct (37 - 47 %) 30.3 L MCV (81.0 - 99.0 FL) 94.6 MCH (27.0 - 31.0 PG) 33.0 H MCHC (33.0 - 37.0 G/DL) 34.9 RDW (11.5 - 14.5 %) 13.5 Plt Count (130 - 400 /CUMM) 172 MPV (7.4 - 10.4 FL) 7.8 Gran % (42.2 - 75.2 %) 48.8 Lymphocytes % (20.5 - 51.1 %) 35.8 Monocytes % (1.7 - 9.3 %) 9.9 H Eosinophils % (0 - 5 %) 4.4 Basophils % (0.0 - 2.0 %) 1.1 Absolute Granulocytes (1.4 - 6.5 /CUMM) 1.2 L Absolute Lymphocytes (1.2 - 3.4 /CUMM) 0.9 L Absolute Monocytes (0.10 - 0.60 /CUMM) 0.2 Absolute Eosinophils (0.0 - 0.7 /CUMM) 0.1 Absolute Basophils (0.0 - 0.2 /CUMM) 0 03/10 1715 Coagulation APTT (25 - 37 SEC) 54 H Hematology CBC w Diff NO MAN DIFF REQ WBC (4.8 - 10.8 /CUMM) 3.2 L RBC (4.20 - 5.40 /CUMM) 3.74 L Hgb (12.0 - 16.0 G/DL) 11.9 L Hct (37 - 47 %) 35.4 L MCV (81.0 - 99.0 FL) 94.7 MCH (27.0 - 31.0 PG) 31.9 H MCHC (33.0 - 37.0 G/DL) 33.7 RDW (11.5 - 14.5 %) 14.2 Plt Count (130 - 400 /CUMM) 187 MPV (7.4 - 10.4 FL) 7.9 Gran % (42.2 - 75.2 %) 63.2 Lymphocytes % (20.5 - 51.1 %) 23.9 Monocytes % (1.7 - 9.3 %) 8.3 Eosinophils % (0 - 5 %) 3.8 Basophils % (0.0 - 2.0 %) 0.8 Absolute Granulocytes (1.4 - 6.5 /CUMM) 2.0 Absolute Lymphocytes (1.2 - 3.4 /CUMM) 0.8 L Absolute Monocytes (0.10 - 0.60 /CUMM) 0.3 Absolute Eosinophils (0.0 - 0.7 /CUMM) 0.1 Absolute Basophils (0.0 - 0.2 /CUMM) 0 Admission Meds I reviewed the following Meds: Current Medications Sig/Santo Start time Last Medication Dose Stop Time Status Admin Aspirin 81 MG DAILY 08/05 1000 AC 08/06 (Aspirin) 0847 Atorvastatin Calcium 10 MG 1700 08/04 2245 AC 08/05 (Lipitor) 1805 Clopidogrel Bisulfate 75 MG DAILY 08/06 1000 AC 08/06 (Plavix) 0848 Fish Oil 1,050 MG DAILY 08/04 2105 AC 08/06 ([place]-3) 0848 Heparin Sodium 25,000 UNIT Q24H 08/04 1800 AC 08/04 (Porcine) 1911 (Heparin) Sodium Chloride 500 ML Insulin Aspart 0 TIDAC 08/05 0800 AC 08/06 (NovoLOG) 1213 Isosorbide 15 MG DAILY@08/05 220 AC 08/05 Mononitrate 2152 (Imdur) Lidocaine 1 PAT DAILY 08/06 0130 AC 08/06 (Lidoderm) 0130 Lidocaine 1 PAT DAILY PRN 08/05 1815 AC 08/06 (Lidoderm) 0910 Metoprolol Tartrate 12.5 MG BID 08/04 2200 AC 08/06 (Lopressor) 0848 Omeprazole 40 MG DAILY AC 08/05 0700 AC 08/06 (Prilosec) 0605 Oxybutynin Chloride 5 MG QPM 08/04 2200 AC 08/05 (Ditropan) 215
--- NOTE | 2017-08-06 14:43 | PN- Cardiology ---
Subjective Subjective: * No chest pain or shortness of breath. * troponon is coming down Objective Vital Signs and I&Os Vital Signs Date Time Temp Pulse Resp B/P B/P Pulse O2 O2 Flow FiO2 Mean Ox Delivery Rate 08/06 0850 98.4 77 18 138/62 98 Room Air 08/06 0848 77 138/62 08/06 0000 98.2 65 18 105/61 99 Room Air Room Air 08/05 2152 72 126/55 08/05 2151 72 16/55 08/05 1600 97.9 74 20 112/58 98 Room Air 08/05 1600 99 Room Air Intake & Output 08/06 1600 08/06 0800 08/06 0000 08/05 1600 08/05 0800 08/05 0000 Intake Total 298 559 832 170 184 Output Total 800 350 850 750 0 Balance -502 209 -18 -580 184 Intake, IV 178 169 112 110 64 Intake, Oral 120 390 720 60 120 Number 0 Bowel Movements Output, Urine 800 350 850 750 0 Patient 180 lb Weight Weight Bed scale Measurement Method Physical Exam: General: WD/WN female in NAD; alert and oriented Neck: no JVD Heart: RRR lungs: clear Etremities: no edema Assessment/Plan Assessment/Plan * Patient is doing better. Continue aspirin and IV heparin. Begin Plavix 75mg daily. Continue Metoprolol, Lipitor and Isosorbide. Persistent ECG changes. Would consider cardiac catheteriation. * An echocardiogram is pending. Continue telemetry? Yes
[2017-08-06 14:58] VITALS: BP 122/58
--- NOTE | 2017-08-06 15:16 | PN- Pulmonary ---
Subjective HPI/Critical Care Issues: * No chest pain or shortness of breath. * troponon is coming down Objective Current Medications: Current Medications Sig/Santo Start time Last Medication Dose Route Stop Time Status Admin Acetaminophen 650 MG ONCE ONE 08/05 181 DC 08/05 PO 08/05 181 1807 Aspirin 81 MG DAILY 08/05 1000 AC 08/06 PO 0847 Atorvastatin Calcium 10 MG 1700 08/04 2245 AC 08/05 PO 1805 Clopidogrel Bisulfate 75 MG DAILY 08/06 1000 AC 08/06 PO 0848 Fish Oil 1,050 MG DAILY 08/04 2105 AC 08/06 PO 0848 Heparin Sodium 2,400 UNIT ONE ONE 08/05 1830 DC (Porcine) IV 08/05 1831 Heparin Sodium 25,000 UNIT Q24H 08/04 1800 AC 08/04 (Porcine) IV 1911 Sodium Chloride 500 ML Insulin Aspart 0 TIDAC 08/05 0800 AC 08/06 SC 1213 Isosorbide 15 MG DAILY@2200 08/05 2200 AC 08/05 Mononitrate PO 2152 Lidocaine 1 PAT DAILY 08/06 0130 AC 08/06 EXT 0130 Lidocaine 1 PAT DAILY PRN 08/05 1815 AC 08/06 EXT 0910 Metoprolol Tartrate 12.5 MG BID 08/04 2200 AC 08/06 PO 0848 Omeprazole 40 MG DAILY AC 08/05 0700 AC 08/06 PO 0605 Oxybutynin Chloride 5 MG QPM 08/04 2200 AC 08/05 PO 2151 Tramadol HCl 50 MG ONCE ONE 08/05 214 DC 08/05 PO 08/05 214 2153 Vital Signs & I&O Last 24 Hrs of Vitals and I&O: Vital Signs Date Time Temp Pulse Resp B/P B/P Pulse O2 O2 Flow FiO2 Mean Ox Delivery Rate 08/06 1458 97.5 67 18 122/58 98 Room Air 08/06 0850 98.4 77 18 138/62 98 Room Air 08/06 0848 77 138/62 08/06 0000 98.2 65 18 105/61 99 Room Air Room Air 08/05 2152 72 126/55 08/05 2151 72 16/55 08/05 1600 97.9 74 20 112/58 98 Room Air 08/05 1600 99 Room Air Intake & Output 08/06 1600 08/06 0800 08/06 0000 Intake Total 298 559 Output Total 800 350 Balance -502 209 Intake, IV 178 169 Intake, Oral 120 390 Output, Urine 800 350 Laboratory Tests 08/06 08/06 08/06 1310 0610 0030 Chemistry Sodium (137 - 145 mmol/L) 139 Potassium (3.5 - 5.1 mmol/L) 3.5 Chloride (98 - 107 mmol/L) 104 Carbon Dioxide (22 - 30 mmol/L) 26 Anion Gap (5 - 16) 9 BUN (7 - 17 mg/dL) 17 Creatinine (0.5 - 1.0 mg/dL) 0.7 Estimated GFR (>60 ml/min) > 60 Glucose (65 - 99 mg/dL) 137 H Calcium (8.4 - 10.2 mg/dL) 9.1 Phosphorus (2.5 - 4.5 mg/dL) 4.0 Magnesium (1.6 - 2.3 mg/dL) 1.8 Total Bilirubin (0.2 - 1.3 mg/dL) 0.7 AST (14 - 36 U/L) 32 ALT (9 - 52 U/L) 25 Troponin I (< 0.11 ng/ml) 0.43 *H Albumin (3.5 - 5.0 g/dL) 3.4 L Coagulation APTT (25 - 37 SEC) Pending 66 H Hematology CBC w Diff NO MAN DIFF REQ WBC (4.8 - 10.8 /CUMM) 2.4 L RBC (4.20 - 5.40 /CUMM) 3.20 L Hgb (12.0 - 16.0 G/DL) 10.6 L Hct (37 - 47 %) 30.3 L MCV (81.0 - 99.0 FL) 94.6 MCH (27.0 - 31.0 PG) 33.0 H MCHC (33.0 - 37.0 G/DL) 34.9 RDW (11.5 - 14.5 %) 13.5 Plt Count (130 - 400 /CUMM) 172 MPV (7.4 - 10.4 FL) 7.8 Gran % (42.2 - 75.2 %) 48.8 Lymphocytes % (20.5 - 51.1 %) 35.8 Monocytes % (1.7 - 9.3 %) 9.9 H Eosinophils % (0 - 5 %) 4.4 Basophils % (0.0 - 2.0 %) 1.1 Absolute Granulocytes (1.4 - 6.5 /CUMM) 1.2 L Absolute Lymphocytes (1.2 - 3.4 /CUMM) 0.9 L Absolute Monocytes (0.10 - 0.60 /CUMM) 0.2 Absolute Eosinophils (0.0 - 0.7 /CUMM) 0.1 Absolute Basophils (0.0 - 0.2 /CUMM) 0 08/05 08/05 08/05 1715 1200 0915 Coagulation APTT (25 - 37 SEC) 54 H 31 Hematology CBC w Diff NO MAN DIFF REQ Cancelled WBC (4.8 - 10.8 /CUMM) 3.2 L Cancelled RBC (4.20 - 5.40 /CUMM) 3.74 L Cancelled Hgb (12.0 - 16.0 G/DL) 11.9 L Cancelled Hct (37 - 47 %) 35.4 L Cancelled MCV (81.0 - 99.0 FL) 94.7 Cancelled MCH (27.0 - 31.0 PG) 31.9 H Cancelled MCHC (33.0 - 37.0 G/DL) 33.7 Cancelled RDW (11.5 - 14.5 %) 14.2 Cancelled Plt Count (130 - 400 /CUMM) 187 Cancelled MPV (7.4 - 10.4 FL) 7.9 Cancelled Gran % (42.2 - 75.2 %) 63.2 Lymphocytes % (20.5 - 51.1 %) 23.9 Monocytes % (1.7 - 9.3 %) 8.3 Eosinophils % (0 - 5 %) 3.8 Basophils % (0.0 - 2.0 %) 0.8 Absolute Granulocytes (1.4 - 6.5 /CUMM) 2.0 Absolute Lymphocytes (1.2 - 3.4 /CUMM) 0.8 L Absolute Monocytes (0.10 - 0.60 /CUMM) 0.3 Absolute Eosinophils (0.0 - 0.7 /CUMM) 0.1 Absolute Basophils (0.0 - 0.2 /CUMM) 0 08/05 08/05 08/04 0628 0133 2045 Chemistry Sodium (137 - 145 mmol/L) 142 Potassium (3.5 - 5.1 mmol/L) 3.6 Chloride (98 - 107 mmol/L) 103 Carbon Dioxide (22 - 30 mmol/L) 27 Anion Gap (5 - 16) 11 BUN (7 - 17 mg/dL) 16 Creatinine (0.5 - 1.0 mg/dL) 0.7 Estimated GFR (>60 ml/min) > 60 Glucose (65 - 99 mg/dL) 144 H Calcium (8.4 - 10.2 mg/dL) 9.0 Phosphorus (2.5 - 4.5 mg/dL) 3.9 Magnesium (1.6 - 2.3 mg/dL) 1.9 Total Bilirubin (0.2 - 1.3 mg/dL) 0.8 Direct Bilirubin (< 0.4 mg/dL) 0.2 AST (14 - 36 U/L) 32 ALT (9 - 52 U/L) 35 Alkaline Phosphatase (<127 U/L) 77 Troponin I (< 0.11 ng/ml) 0.86 *H 1.15 *H Total Protein (6.3 - 8.2 g/dL) 6.1 L Albumin (3.5 - 5.0 g/dL) 3.5 Coagulation APTT (25 - 37 SEC) > 120 *H Hematology CBC w Diff NO MAN DIFF REQ WBC (4.8 - 10.8 /CUMM) 2.5 L RBC (4.20 - 5.40 /CUMM) 3.29 L Hgb (12.0 - 16.0 G/DL) 10.6 L Hct (37 - 47 %) 31.0 L MCV (81.0 - 99.0 FL) 94.3 MCH (27.0 - 31.0 PG) 32.3 H MCHC (33.0 - 37.0 G/DL) 34.3 RDW (11.5 - 14.5 %) 14.0 Plt Count (130 - 400 /CUMM) 154 MPV (7.4 - 10.4 FL) 8.2 Gran % (42.2 - 75.2 %) 64.0 Lymphocytes % (20.5 - 51.1 %) 21.9 Monocytes % (1.7 - 9.3 %) 10.5 H Eosinophils % (0 - 5 %) 2.9 Basophils % (0.0 - 2.0 %) 0.7 Absolute Granulocytes (1.4 - 6.5 /CUMM) 1.6 Absolute Lymphocytes (1.2 - 3.4 /CUMM) 0.5 L Absolute Monocytes (0.10 - 0.60 /CUMM) 0.3 Absolute Eosinophils (0.0 - 0.7 /CUMM) 0.1 Absolute Basophils (0.0 - 0.2 /CUMM) 0 08/04 181 Urines Urine Color (YEL,AMB,STR) YEL Urine Clarity (CLEAR) CLEAR Urine pH (5.0 - 8.0) 7.0 Ur Specific [place] (1.001 - 1.035) <= 1.005 Urine Protein (NEG,<30 MG/DL) NEG Urine Ketones (NEG) NEG Urine Nitrite (NEG) NEG Urine Bilirubin (NEG) NEG Urine Urobilinogen (0.1 - 1.0 EU/dl) 0.2 Ur Leukocyte Esterase (NEG) TRACE H Ur Microscopic SEDIMENT EXAMINED Urine RBC (0 - 5 /HPF) RARE Urine WBC (0 - 2 /HPF) 1-3 H Ur Epithelial Cells (NONE,FEW) RARE Urine Hemoglobin (NEG) NEG Urine Glucose (N MG/DL) NEG Microbiology Date/Time Procedure - Status Source Growth 08/04 2114 Surveillance Culture - COMP UPPER RESP 08/04 2114 Surveillance Culture - COMP GI 08/04 184 Blood Culture - RES BLOOD 08/04 183 Blood Culture - RES BLOOD 08/04 1813 Urine Culture - COMP URINE ROUT Impression/Plan Impression/Plan Impression/Plan: General Appearance Alert, Oriented X3, Cooperative, No Acute Distress Skin No Rashes, No Breakdown, No Significant Lesion Skin Temp/Moisture Exam: Warm/Dry Sepsis Skin Exam (color): Normal for Ethnicity HEENT Atraumatic, PERRLA, EOMI, Mucous Membr. moist/pink Neck Supple, No JVD, No thryomegaly, +2 Carotid Pulse wo Bruit, No LAD Lymphatic Cervical nl Cardiovascular Regular Rate, Normal S1, Normal S2, No Murmurs, Gallops, Rubs Lungs Clear to Auscultation, Normal Air Movement Abdomen Normal Bowel Sounds, Soft, No Tenderness, No Hepatospenomegaly, No Masses Neurological Normal Speech, Strength at 5/5 X4 Ext, Normal Tone, Sensation Intact, Cranial Nerves 3-12 NL, Reflexes 2+ Extremities No Clubbing, No Cyanosis, No Edema, Normal Pulses, No Tenderness/ Swelling Vascular Normal Pulses, Pulses Symmetrical Rectal Guiac Negative IMPRESSION This is a lady with the history of GERD, chronic cough due to GERD, previous lung nodule which has been benign, diabetes type 2 on oral hypoglycemic agent, previous colon polyp and diverticulosis, previous nontoxic goiter, morbid obesity, hypertension, fibromyalgia, chronic bladder incontinence, spinal stenosis, previous history of nephrectomy, hypertension and on and off chest discomfort followed by cardiology on Imdur and low-dose metoprolol, now comes in with history of significant shaking chills at home with multiple episodes of vomiting. This morning she continued to have a queasy feeling in her abdomen and some lower chest discomfort. And she was advised to come to the emergency room. In the emergency room she did have a CTA of the chest which did not reveal any pulmonary embolism and her CT abdomen and pelvis was done which did not reveal any significant acute pathology. And patient was found to have elevated troponin with no significant EKG changes Issues * Elevated troponin with no significant EKG changes with occasional chest discomfort in a lady with diabetes. Prob Non-ST segment elevation IN, needs to be eval and cardio consult appretiated. Will see if she needs a stress test vs a Cardiac cath * HIstory of vomiting prior to admission lasting for 12 hours with shaking chills. Differential diagnosis is broad. Symptoms seem to have resolved. Patient may have had gastroenteritis versus other pathology. No evidence of sepsis at this time * Significant diverticulosis with some evidence suggestive of diverticulitis. But clinically she does not have any symptoms this needs to be watched and evaluated. We'll watch her off antibiotics * Previous history of nephrectomy, hypertension, chest discomfort, bladder incontinence, GERD, hyperlipidemia and nonsmoker. High risk for significant ischemic heart disease * Resolved Elevated bilirubin, imaging nil acute * Diabetes on oral hypoglycemics stable * Urinary incontinence rule out UTI * Previous history of spinal stenosis with surgery in the past, chronic pain, fibromyalgia which is stable * Lung nodule in the past which is also stable. RECOMMENDATIONS/PLAN * Serial ekg * Check cbc * Serial troponin and ekg * Heparin per cardiology * Echocardiogram / cardio eval * Continue her statin, aspirin and low-dose beta marianne and imdur * Watch off abx and await cultures * Hold oral sulfonylurea and use insulin if needed and cont onglyza * If she does have a high fever or shaking chills etc. we will start her on antibiotics (Unasyn) KEEP NPO AFTER MIDNIGHT IN ANTICIPATION OF ANY CARDIAC CATH
[2017-08-06 15:43] LABS: PTT 50 SEC (25-37)
[2017-08-06 16:00] VITALS: BP 124/62
[2017-08-06 20:46] LABS: PTT 104 SEC (25-37)
[2017-08-06 22:50] VITALS: BP 122/60
[2017-08-07 05:29] LABS: ABSOLUTE BASOPHIL COUNT 0 /CUMM (0.0-0.2); ABSOLUTE EOSINOPHIL COUNT 0.1 /CUMM (0.0-0.7); ABSOLUTE GRANULOCYTE CT 1.4 /CUMM (1.4-6.5); ABSOLUTE LYMPH COUNT 0.9 /CUMM (1.2-3.4); ABSOLUTE MONOCYTE COUNT 0.2 /CUMM (0.10-0.60); BASOPHIL % 1.1 % (0.0-2.0); EOSINOPHIL % 3.2 % (0-5); GRANULOCYTE % 53.3 % (42.2-75.2); HEMATOCRIT 30.4 % (37-47); MEAN CORPUSCULAR HGB 32.6 PG (27.0-31.0); MEAN CORPUSCULAR HGB CONC 34.6 G/DL (33.0-37.0); MEAN CORPUSCULAR VOLUME 94.1 FL (81.0-99.0); MEAN PLATELET VOLUME 7.8 FL (7.4-10.4); PLATELET COUNT 181 /CUMM (130-400); RBC DISTRIBUTION WIDTH 14.1 % (11.5-14.5); RED BLOOD CELL CT 3.23 /CUMM (4.20-5.40); WHITE BLOOD CELL COUNT 2.7 /CUMM (4.8-10.8)
[2017-08-07 05:31] LABS: PTT 46 SEC (25-37)
[2017-08-07 07:02] VITALS: BP 120/60
--- NOTE | 2017-08-07 07:28 | PN- Housestaff ---
Subjective Follow-up For: NSTEMI Nausea vomiting and abdominal discomfort - resolved Lung nodule Tele-Events Since Last Visit: NSR Heart Rate 64-70 Subjective: Patient is resting comfortably, awaiting transfer to [facility] for cardiac catheterization. Denies any chest pain. Review of Systems Constitutional: Reports: no symptoms. EENTM: Reports: no symptoms. Cardiovascular: Reports: no symptoms. Respiratory: Reports: no symptoms. Gastrointestinal: Reports: no symptoms. Genitourinary: Reports: no symptoms. Musculoskeletal: Reports: no symptoms. Skin: Reports: no symptoms. Neurological/Psychological: Reports: no symptoms. Hematologic/Endocrine: Reports: no symptoms. Immunologic/Allergic: Reports: no symptoms. Objective Last 24 Hrs of Vital Signs/I&O Vital Signs Date Time Temp Pulse Resp B/P B/P Pulse O2 O2 Flow FiO2 Mean Ox Delivery Rate 08/08 927 71 120/60 08/07 0702 99.0 71 20 120/60 97 Room Air 08/06 2250 97.9 73 18 122/60 98 Room Air 08/06 2057 68 122/58 08/06 2056 68 122/58 08/06 1600 98.0 68 18 124/62 98 Room Air 08/06 1458 97.5 67 18 122/58 98 Room Air Intake & Output 08/07 1600 08/07 0800 08/07 0000 Intake Total 280 245 Output Total Balance 280 245 Intake, IV 160 45 Intake, Oral 120 200 Patient 180 lb Weight Weight Bed scale Measurement Method Physical Exam General Appearance: Alert, Oriented X3, Cooperative, No Acute Distress Skin: No Rashes, No Breakdown Cardiovascular: Regular Rate, Normal S1, Normal S2 Lungs: Clear to Auscultation, Normal Air Movement Abdomen: Normal Bowel Sounds, Soft, No Tenderness Extremities: No Clubbing, No Cyanosis, No Edema Current Medications: Current Medications Sig/Santo Start time Last Medication Dose Route Stop Time Status Admin Aspirin 81 MG DAILY 08/05 1000 DCD 08/07 PO 09 Atorvastatin Calcium 10 MG 1700 08/04 2245 DCD 08/06 PO 1803 Clopidogrel Bisulfate 75 MG DAILY 08/06 1000 DCD 08/07 PO 09 Dextrose/Sodium 1,000 ML Q20H 08/06 2330 DCD 08/07 [place]ide [place] 0030 Fish Oil 1,050 MG DAILY 08/04 2104 DCD 08/07 PO 927 Heparin Sodium 2,500 UNIT ONCE ONE 08/07 0515 DC 08/07 (Porcine) IV 08/07 0616 0601 Heparin Sodium 2,500 UNIT ONCE ONE 08/06 1700 DC 08/06 (Porcine) IV 08/06 1701 1807 Heparin Sodium 5,000 UNIT .STK-MED ONE 08/06 1659 DC (Porcine) IV 08/06 1700 Heparin Sodium 25,000 UNIT Q24H 08/04 1800 DCD 08/06 (Porcine) IV 1952 Sodium Chloride 500 ML Insulin Aspart 0 TIDAC 08/05 0800 DC 08/06 SC 1803 Insulin Human Regular 0 Q6 08/06 2359 DCD 08/07 SC 1155 Isosorbide 15 MG DAILY@2200 08/05 220 DCD 08/06 Mononitrate PO 205 Lidocaine 1 PAT DAILY 08/06 0130 DCD 08/07 EXT 0929 Lidocaine 1 PAT DAILY PRN 08/05 1815 DCD 08/07 EXT 0532 Metoprolol Tartrate 12.5 MG BID 08/04 2200 DCD 08/07 PO 0928 Omeprazole 40 MG DAILY AC 08/05 0700 DCD 08/07 PO 0603 Oxybutynin Chloride 5 MG QPM 08/04 2200 DCD 08/06 PO 205 Polyethylene Glycol 17 GM DAILY 08/06 1647 DCD 08/07 PO 0929 Senna 187 MG AT BEDTIME 08/06 1700 DCD 08/06 PO 205 Last 24 Hrs of Lab/[place] Results Last 24 Hrs of Labs/Mics: Laboratory Tests 08/07/17 0405: Anion Gap 10, Estimated GFR > 60, BUN/Creatinine Ratio 20.0, APTT 46 H, CBC w Diff NO MAN DIFF REQ, RBC 3.23 L, MCV 94.1, MCH 32.6 H, MCHC 34.6, RDW 14.1, MPV 7.8, Gran % 53.3, Lymphocytes % 33.3, Monocytes % 9.1, Eosinophils % 3.2, Basophils % 1.1, Absolute Granulocytes 1.4, Absolute Lymphocytes 0.9 L, Absolute Monocytes 0.2, Absolute Eosinophils 0.1, Absolute Basophils 0 08/06/172019: APTT 104 *H Assessment/Plan Assessment: This is a 77 yo female with PMH of GERD with cough, T2 DM, HTN, HLD, CAD, simple goiter, incontinence, fibromyalgia, squamous cell ca of skin, spinal stenosis, r nephrectomy, colonic polyps, lung nodules who comes in for CC of N/V/ with rigors and diaphoresis for half a day. ED work up showed benign CT abdomen and pelvis and CTA chest. However, she did have Trop of 1.41 without any EKG changes. Pt no longer complains of any chest pain/pressure, abdominal pain, diarrhea, nausea or vomiting. No EKG changes with troponins trending down to 0.43. 1. NSTEMI 2. Nausea, vomiting, shaking chills - Resolved 3. History of fibromyalgia, hypertension, hyperlipidemia, and diabetes - Continue IV heparin, aspirin, clopidogrel, statin, and metoprolol. - Echocardiogram shows normal ejection fraction with no regional wall motion abnormalities. - Appreciate cardiology recommendations. - Nausea vomiting and chills resolved, continue to monitor her off antibiotics. - Continue home medications for fibromyalgia, hypertension and diabetes. - Outpatient follow-up for the lung nodule DVT prophylaxis, IV heparin Patient is full code Problem List: 1. Non-STEMI (non-ST elevated myocardial infarction) Pain Ratin Pain Location: None Pain Goal: Remain pain free Pain Plan: NA Tomorrow's Labs & Rationales: None
--- NOTE | 2017-08-07 08:00 | ECHOCARDIOGRAM REPORT ---
HANY SIMMONS Age: 77 : 1940 Gender: F Exam Date: 08/06/2017 09:42 Exam Location: [place] Ht (in): 64 Wt (lb): 180 BSA: 1.95 BP: 105 / 61 Ordering Physician: Nargis Roberts MD Referring Physician: Katja Anderson MD Technologist: Yomaira Sanz [facility] Room Number: 173 Indications: CHEST PAIN Rhythm: Sinus Technical Quality: Fair, Technically difficult study FINDINGS Left Ventricle Normal size left ventricle. No obvious regional wall motion abnormalities. Normal left ventricular ejection fraction estimated at 60-65%. Right Ventricle Right ventricle not well visualized, grossly normal. Right Atrium Normal right atrial size. Left Atrium Mild left atrial dilatation. Mitral Valve Mitral valve thickened. Mitral annular calcification. Trace to mild mitral regurgitation. Aortic Valve Trileaflet aortic valve. Diffuse thickening (sclerosis) of the aortic valve cusps without reduced excursion. No aortic stenosis. No aortic regurgitation. Tricuspid Valve Tricuspid valve not well visualized, grossly normal. Mild tricuspid regurgitation. Right ventricular systolic pressure estimated at 30 mmHg. Pulmonic Valve Pulmonic valve not well visualized, grossly normal. Pericardium No pericardial effusion. Great Vessels Aortic root and proximal ascending aorta not well visualized, grossly normal. CONCLUSIONS 1. This was a technically difficult examination. 2. Aortic sclerosis is present with no valvular stenosis or insufficiency. 3. Mitral leaflet thickening is present with mild anular calcification and mild mitral insufficiency with mild left atiral enlargement. 4. There is no pericardial fluid present. 5. The left ventricualr chamber size and systolic function are normal with no resting wall motion abnormalities. 6. Mild tricuspid insufficiency is present with no evidence of pulmonary hypertension. 7. Lipomatous atrial septal hypertrophy is present. Katja Anderson M.D. (Electronically Signed) Final Date: 07 August 2017 07:59 MEASUREMENTS (Male / Female) Normal Values 2D ECHO LV Diastolic Diameter PLAX 4.3 cm 4.2 - 5.9 / 3.9 - 5.3 cm LV Systolic Diameter PLAX 2.6 cm 2.1 - 4.0 cm LV Fractional Shortening PLAX 39.5 % 25 - 46 % LV Ejection Fraction 2D Teich 70.4 % IVS Diastolic Thickness 1.1 cm LVPW Diastolic Thickness 1.1 cm LV Relative Wall Thickness 0.5 RV Internal Dim ED PLAX 3.2 cm 1.9 - 3.8 cm LVOT Diameter 1.9 cm Aortic Root Diameter 2.6 cm LA Systolic Diameter LX 3.1 cm 3.0 - 4.0 / 2.7 - 3.8 cm LA Volume 29.0 cm 18 - 58 / 22 - 52 cm Ascending Aorta Diameter 2.6 cm DOPPLER AV Peak Velocity 136.0 cm/s AV Peak Gradient 7.4 mmHg AV Mean Velocity 94.5 cm/s AV Mean Gradient 4.0 mmHg AV Velocity Time Integral 30.2 cm LVOT Peak Velocity 106.0 cm/s LVOT Peak Gradient 4.5 mmHg LVOT Mean Velocity 74.0 cm/s LVOT Mean Gradient 3.0 mmHg LVOT Velocity Time Integral 23.9 cm LVOT Stroke Volume 67.8 cm AV Area Cont Eq vti 2.2 cm AV Area Cont Eq pk 2.2 cm MV Peak Velocity 101.0 cm/s MV Peak Gradient 4.1 mmHg MV Mean Velocity 66.4 cm/s MV Mean Gradient 2.0 mmHg Mitral E Point Velocity 82.4 cm/s Mitral A Point Velocity 87.9 cm/s Mitral E to A Ratio 0.9 MV PHT Velocity 105.0 cm/s MV Deceleration Rankin 338.0 cm/s MV Pressure Half Time 93.2 ms MV Area PHT 2.4 cm MV Deceleration Time 185.0 ms TR Peak Velocity 218.0 cm/s TR Peak Gradient 19.0 mmHg Right Atrial Pressure 5.0 mmHg Pulmonary Artery Systolic Pressu 24.0 mmHg Right Ventricular Systolic Press 24.0 mmHg PV Peak Velocity 88.8 cm/s PV Peak Gradient 3.2 mmHg PV Mean Velocity 64.3 cm/s PV Mean Gradient 2.0 mmHg PV Velocity Time Integral 21.9 cm LV E' Lateral Velocity 7.5 cm/s Mitral E to LV E' Lateral Ratio 11.0 LV E' Septal Velocity 7.4 cm/s Mitral E to LV E' Septal Ratio 11.1
[2017-08-07 09:28] VITALS: BP 120/60
--- NOTE | 2017-08-07 10:03 | PN- Cardiology ---
Subjective Subjective: The patient reports that she is feeling better. No current chest discomfort. No shortness of breath. No further nausea or vomiting. No diaphoresis. No palpitations. No lightheadedness or dizziness. Objective Vital Signs and I&Os Vital Signs Date Time Temp Pulse Resp B/P B/P Pulse O2 O2 Flow FiO2 Mean Ox Delivery Rate 08/08 927 71 120/60 08/07 0702 99.0 71 20 120/60 97 Room Air 08/06 2250 97.9 73 18 122/60 98 Room Air 08/06 2057 68 122/58 08/06 2056 68 122/58 08/06 1600 98.0 68 18 124/62 98 Room Air 08/06 1458 97.5 67 18 122/58 98 Room Air Intake & Output 08/07 1600 08/07 0800 08/07 0000 08/06 1600 08/06 0800 08/06 0000 Intake Total 280 245 660 298 559 Output Total 800 350 Balance 280 245 660 -502 209 Intake, IV 160 45 180 178 169 Intake, Oral 120 200 480 120 390 Number 0 Bowel Movements Output, Urine 800 350 Patient 180 lb 182 lb Weight Weight Bed scale Bed scale Measurement Method Physical Exam: Gen: NAD HEENT: normal Lungs: clear to auscultation, normal resp. effort Heart: RRR, S1, S2, no murmurs Abdomen: Soft, nontender, no masses Extremities: No clubbing, cyanosis, or edema. Neuro: Alert and oriented x 3, cranial nerves intact Current Medications: Current Medications Sig/Santo Start time Last Medication Dose Route Stop Time Status Admin Aspirin 81 MG DAILY 08/05 1000 AC 08/07 PO 09 Atorvastatin Calcium 10 MG 1700 08/04 2245 AC 08/06 PO 1803 Clopidogrel Bisulfate 75 MG DAILY 08/06 1000 AC 08/07 PO 0928 Dextrose/Sodium 1,000 ML Q20H 08/06 2330 AC 08/07 [place] 0030 Fish Oil 1,050 MG DAILY 08/04 2105 AC 08/07 PO 0928 Heparin Sodium 2,500 UNIT ONCE ONE 08/07 0615 DC 08/07 (Porcine) IV 08/07 0616 0601 Heparin Sodium 2,500 UNIT ONCE ONE 08/06 1700 DC 08/06 (Porcine) IV 08/06 170 1807 Heparin Sodium 5,000 UNIT .STK-MED ONE 08/06 1659 DC (Porcine) IV 08/06 1700 Heparin Sodium 25,000 UNIT Q24H 08/04 1800 AC 08/06 (Porcine) IV 195 Sodium Chloride 500 ML Insulin Aspart 0 TIDAC 08/05 0800 DC 08/06 SC 1803 Insulin Human Regular 0 Q6 08/06 2359 AC 08/07 SC 0601 Isosorbide 15 MG DAILY@2200 08/05 2200 AC 08/06 Mononitrate PO 205 Lidocaine 1 PAT DAILY 08/06 0130 AC 08/07 EXT 0929 Lidocaine 1 PAT DAILY PRN 08/05 1815 AC 08/07 EXT 0532 Metoprolol Tartrate 12.5 MG BID 08/04 220 AC 08/07 PO 0928 Omeprazole 40 MG DAILY AC 08/05 0700 AC 08/07 PO 06 Oxybutynin Chloride 5 MG QPM 08/04 220 AC 08/06 PO 2055 Polyethylene Glycol 17 GM DAILY 08/06 1647 AC 08/07 PO 09 Senna 187 MG AT BEDTIME 08/06 170 AC 08/06 PO 2054 Results Last 48 Hrs of Labs/Mics: Laboratory Tests 08/07/17 0405: Anion Gap 10, Estimated GFR > 60, BUN/Creatinine Ratio 20.0, APTT 46 H, CBC w Diff NO MAN DIFF REQ, RBC 3.23 L, MCV 94.1, MCH 32.6 H, MCHC 34.6, RDW 14.1, MPV 7.8, Gran % 53.3, Lymphocytes % 33.3, Monocytes % 9.1, Eosinophils % 3.2, Basophils % 1.1, Absolute Granulocytes 1.4, Absolute Lymphocytes 0.9 L, Absolute Monocytes 0.2, Absolute Eosinophils 0.1, Absolute Basophils 0 08/06/17 2020: APTT 104 *H 08/06/17 1310: APTT 50 H 08/06/17 0610: Anion Gap 9, Estimated GFR > 60, Glucose 137 H, Calcium 9.1, Phosphorus 4.0, Magnesium 1.8, Total Bilirubin 0.7, AST 32, ALT 25, Albumin 3.4 L, CBC w Diff NO MAN DIFF REQ, RBC 3.20 L, MCV 94.6, MCH 33.0 H, MCHC 34.9, RDW 13.5, MPV 7.8, Gran % 48.8, Lymphocytes % 35.8, Monocytes % 9.9 H, Eosinophils % 4.4, Basophils % 1.1, Absolute Granulocytes 1.2 L, Absolute Lymphocytes 0.9 L, Absolute Monocytes 0.2, Absolute Eosinophils 0.1, Absolute Basophils 0 08/06/17 0030: Troponin I 0.43 *H, APTT 66 H 08/05/17 1715: APTT 54 H, CBC w Diff NO MAN DIFF REQ, RBC 3.74 L, MCV 94.7, MCH 31.9 H, MCHC 33.7, RDW 14.2, MPV 7.9, Gran % 63.2, Lymphocytes % 23.9, Monocytes % 8.3, Eosinophils % 3.8, Basophils % 0.8, Absolute Granulocytes 2.0, Absolute Lymphocytes 0.8 L, Absolute Monocytes 0.3, Absolute Eosinophils 0.1, Absolute Basophils 0 08/05/17 1200: CBC w Diff Cancelled, WBC Cancelled, RBC Cancelled, Hgb Cancelled, Hct Cancelled , MCV Cancelled, MCH Cancelled, MCHC Cancelled, RDW Cancelled, Plt Count Cancelled, MPV Cancelled Recent Imaging Studies: Echocardiogram 08/07/17: 1. This was a technically difficult examination. 2. Aortic sclerosis is present with no valvular stenosis or insufficiency. 3. Mitral leaflet thickening is present with mild anular calcification and mild mitral insufficiency with mild left atiral enlargement. 4. There is no pericardial fluid present. 5. The left ventricualr chamber size and systolic function are normal with no resting wall motion abnormalities. 6. Mild tricuspid insufficiency is present with no evidence of pulmonary hypertension. 7. Lipomatous atrial septal hypertrophy is present. Assessment/Plan Assessment/Plan Assessment: 1. Acute non-ST elevation myocardial infarction 2. Systemic symptoms suggestive of possible infection 3. elevated bilirubin 4. History of hypertension 5. History of diabetes 6. History of reflux disease 7. Diverticulosis with evidence of possible mild diverticulitis on CT scan 8. Atherosclerotic vascular disease Plan: * Continue metoprolol * Continue aspirin and Plavix * Continue statin * Transfer to [facility] for cardiac catheterization with Dr. Uziel Boateng Continue telemetry? Yes
[2017-08-07] MEDS ORDERED: PLAVIX75 M1 PO (11:03)
[2017-08-07] MEDS ORDERED: ASPIRIN81 M4 PO (11:04)
--- NOTE | 2017-08-07 11:06 | Discharge Summary ---
Visit Information Visit Dates Admission Date: 08/04/17 Discharge Date: 08/07/17 Hospital Course Course Attending Physician: Angelo Price MD Primary Care Physician: Angelo Price MD Consulting Request: Consulting Specialty: Cardiology Consulting Physician: Dr. Anderson Reason for Consult: NSTEMI Hospital Course: The patient is a 77-year-old lady with a past medical history significant for GERD with chronic cough, lung nodule, type 2 diabetes, hypertension, hyperlipidemia, colon polyps, nontoxic simple goiter, fibromyalgia, bladder incontinence, squamous cell carcinoma of skin, spinal stenosis, and right nephrectomy who presented to the hospital after developing sudden onset of epigastric pain, nausea, vomiting, chills which occurred on the night of presentation. According to the patient, she started experiencing nausea on the night of presentation and had episodes of vomiting and experienced epigastric chest pressure/pain after each vomiting. She also had some chills and felt lightheaded, but did not pass out. She attributed her symptoms to her GERD and took some Tums which improved symptoms. Later on she contacted her PCP who recommended her to go to the [facility] ED for further evaluation. Physical exam on presentation is as follows: Physical Exam General Appearance Alert, Oriented X3, Cooperative, No Acute Distress Skin No Rashes, No Breakdown, No Significant Lesion Skin Temp/Moisture Exam: Warm/Dry Sepsis Skin Exam (color): Normal for Ethnicity HEENT Atraumatic, PERRLA, EOMI, Mucous Membr. moist/pink Neck Supple, No JVD, No thryomegaly, +2 Carotid Pulse wo Bruit, No LAD Lymphatic Cervical nl Cardiovascular Regular Rate, Normal S1, Normal S2, No Murmurs, Gallops, Rubs Lungs Clear to Auscultation, Normal Air Movement Abdomen Normal Bowel Sounds, Soft, No Tenderness, No Hepatospenomegaly, No Masses Neurological Normal Speech, Strength at 5/5 X4 Ext, Normal Tone, Sensation Intact, Cranial Nerves 3-12 NL, Reflexes 2+ Extremities No Clubbing, No Cyanosis, No Edema, Normal Pulses, No Tenderness/ Swelling Vascular Normal Pulses, Pulses Symmetrical Rectal Guiac Negative An EKG done in the ER showed no ST segment abnormalities but she did have elevated troponins which peaked at 1.41 NG/mL without significant EKG changes before dropping to 0.43 ng/ml. She was started on IV heparin drip, and continued on her home medications of Po Imdur 15 mg daily, by mouth metoprolol 12.5 mg twice a day, aspirin 81 mg daily, Plavix 75 mg daily and atorvastatin 10 mg daily. She was placed on an NovoLog sliding scale for her diabetes. Her chest x-ray did not show any abnormality and a CT angiogram of her chest was negative for pulmonary embolism. She also had a CT scan of her abdomen and pelvis with did not reveal any abnormality. An echocardiogram done showed a normal ejection fraction of 65% with no wall motion abnormalities. Her epigastric and chest discomfort did not return while on admission and she was reviewed by sole ruffer Dr. Anderson and transferred to [facility] for cardiac catheterization. On admission she had transient elevated bilirubin which trended down to normal without any intervention. Also her urine cultures and blood cultures showed no growth at the time of transfer. Allergies: Coded Allergies: adhesive tape (RASH 05/17/16) latex (RASH 05/17/16) Significant Procedures: CT ABD & PELVIS W/O IV CONTRAST IMPRESSION: 1. Sigmoid diverticulosis. Mild haziness in the fat adjacent to the distal sigmoid colon may reflect mild diverticulitis/colitis. Clinically correlate. 2. Right kidney surgically absent. No evidence of left renal calculi, suspicious lesions, or hydronephrosis. 3. No acute findings otherwise demonstrated in the abdomen or pelvis. XRY-PORTABLE CHEST XRAY FINDINGS: The lungs are clear without consolidation, edema, or effusion. There is no pneumothorax. The cardiomediastinal silhouette appears normal. There are degenerative changes at the bilateral shoulder joints. IMPRESSION: No active disease in the chest. CTA CHEST-PULMONARY EMBOLISM IMPRESSION: 1. No evidence of pulmonary embolism. No acute change of chest. 2. Stable subcentimeter pulmonary nodules unchanged since CAT scan 10/22/2010. These are benign. No further imaging is suggested. VTE: Negative ECHOCARDIOGRAM FINDINGS Left Ventricle Normal size left ventricle. No obvious regional wall motion abnormalities. Normal left ventricular ejection fraction estimated at 60-65%. Right Ventricle Right ventricle not well visualized, grossly normal. Right Atrium Normal right atrial size. Left Atrium Mild left atrial dilatation. Mitral Valve Mitral valve thickened. Mitral annular calcification. Trace to mild mitral regurgitation. Aortic Valve Trileaflet aortic valve. Diffuse thickening (sclerosis) of the aortic valve cusps without reduced excursion. No aortic stenosis. No aortic regurgitation. Tricuspid Valve Tricuspid valve not well visualized, grossly normal. Mild tricuspid regurgitation. Right ventricular systolic pressure estimated at 30 mmHg. Pulmonic Valve Pulmonic valve not well visualized, grossly normal. Pericardium No pericardial effusion. Great Vessels Aortic root and proximal ascending aorta not well visualized, grossly normal. CONCLUSIONS 1. This was a technically difficult examination. 2. Aortic sclerosis is present with no valvular stenosis or insufficiency. 3. Mitral leaflet thickening is present with mild anular calcification and mild mitral insufficiency with mild left atiral enlargement. 4. There is no pericardial fluid present. 5. The left ventricualr chamber size and systolic function are normal with no resting wall motion abnormalities. 6. Mild tricuspid insufficiency is present with no evidence of pulmonary hypertension. 7. Lipomatous atrial septal hypertrophy is present. Katja Anderson M.D. (Electronically Signed) Final Date: 07 August 2017 07:59 MEASUREMENTS (Male / Female) Normal Values 2D ECHO LV Diastolic Diameter PLAX 4.3 cm 4.2 - 5.9 / 3.9 - 5.3 cm LV Systolic Diameter PLAX 2.6 cm 2.1 - 4.0 cm LV Fractional Shortening PLAX 39.5 % 25 - 46 % LV Ejection Fraction 2D Teich 70.4 % IVS Diastolic Thickness 1.1 cm LVPW Diastolic Thickness 1.1 cm LV Relative Wall Thickness 0.5 RV Internal Dim ED PLAX 3.2 cm 1.9 - 3.8 cm LVOT Diameter 1.9 cm Aortic Root Diameter 2.6 cm LA Systolic Diameter LX 3.1 cm 3.0 - 4.0 / 2.7 - 3.8 cm LA Volume 29.0 cm 18 - 58 / 22 - 52 cm Ascending Aorta Diameter 2.6 cm DOPPLER AV Peak Velocity 136.0 cm/s AV Peak Gradient 7.4 mmHg AV Mean Velocity 94.5 cm/s AV Mean Gradient 4.0 mmHg AV Velocity Time Integral 30.2 cm LVOT Peak Velocity 106.0 cm/s LVOT Peak Gradient 4.5 mmHg LVOT Mean Velocity 74.0 cm/s LVOT Mean Gradient 3.0 mmHg LVOT Velocity Time Integral 23.9 cm LVOT Stroke Volume 67.8 cm AV Area Cont Eq vti 2.2 cm AV Area Cont Eq pk 2.2 cm MV Peak Velocity 101.0 cm/s MV Peak Gradient 4.1 mmHg MV Mean Velocity 66.4 cm/s MV Mean Gradient 2.0 mmHg Mitral E Point Velocity 82.4 cm/s Mitral A Point Velocity 87.9 cm/s Mitral E to A Ratio 0.9 MV PHT Velocity 105.0 cm/s MV Deceleration [place] 338.0 cm/s MV Pressure Half Time 93.2 ms MV Area PHT 2.4 cm MV Deceleration Time 185.0 ms TR Peak Velocity 218.0 cm/s TR Peak Gradient 19.0 mmHg Right Atrial Pressure 5.0 mmHg Pulmonary Artery Systolic Pressu 24.0 mmHg Right Ventricular Systolic Press 24.0 mmHg PV Peak Velocity 88.8 cm/s PV Peak Gradient 3.2 mmHg PV Mean Velocity 64.3 cm/s PV Mean Gradient 2.0 mmHg PV Velocity Time Integral 21.9 cm LV E' Lateral Velocity 7.5 cm/s Mitral E to LV E' Lateral Ratio 11.0 LV E' Septal Velocity 7.4 cm/s Mitral E to LV E' Septal Ratio 11.1 Disposition Summary Disposition Principal Diagnosis: 1. NSTEMI 2. Probable viral gastritis enteritis with nausea, vomiting, shaking chills 3. Elevated bilirubin 4. Hypertension 5. Diabetes Additional Diagnosis: 6. Diverticulosis 7. GERD 8. Stable lung nodules on CAT scan Discharge Disposition: other general hospital Discharge Instructions General Discharge Information Code Status: Full Code Patient's Diet: Heart Healthy Patient's Activity: As tolerated Follow-Up Instructions/Appts: 1. You are being transferred to [facility] for cardiac catheterization 2. Follow-up with your sole ruffer Dr. Anderson within 1 week of discharge 3. Follow-up with your primary care physician Dr. Price within 1 week of discharge Medications at Discharge Discharge Medications: Continue taking these medications: Metoprolol Tartrate (Metoprolol Tartrate) 25 MG TABLET 0.5 Tablet ORAL TWICE DAILY Comments: 12.5 MG GIVEN 08/07/17 0928 Isosorbide Mononitrate (Isosorbide Mononitrate ER) 30 MG TAB.ER.24H 0.5 Tablet ORAL DAILY Comments: NOT GIVEN Gabapentin (Neurontin) 300 MG CAPSULE 2 Capsule ORAL BID-TID Comments: NOT GIVEN Cyclobenzaprine HCl (Cyclobenzaprine HCl) 10 MG TABLET 1 Tablet ORAL as needed for MUSCLE SPASMS Comments: NOT GIVEN Tramadol HCl (Tramadol HCl) 50 MG TABLET 1-2 Tablet ORAL TWICE DAILY as needed for PAIN Comments: NOT GIVEN Pantoprazole Sodium (Protonix) 40 MG TABLET.DR 1 Tablet ORAL DAILY Comments: NOT GIVEN Glipizide (Glipizide ER) 5 MG TAB.ER.24 1 Tablet ORAL TWICE DAILY Qty = 90 Comments: NOT GIVEN Amiloride/Hydrochlorothiazide (Amiloride HCl-Hctz 5-50 MG Tab) 5 MG-50 MG TABLET 1 Tablet ORAL DAILY Qty = 90 Comments: PER PT MED LIST NOT GIVEN Oxybutynin Chloride (Oxybutynin Chloride) 5 MG TABLET 1 Tablet ORAL Every night Qty = 90 Comments: NOT GIVEN Simvastatin (Zocor*) 20 MG TABLET 1 Tablet ORAL Every night Comments: NOT GIVEN [place]-3 Fatty Acids (Fish Oil Concentrate) 1,000 MG CAPSULE 1 Capsule ORAL DAILY Comments: 08/07/17927 Multivitamin (Daily Value) 1 EACH TABLET 1 Tablet ORAL DAILY Comments: NOT GIVEN Ascorbic Acid (Vitamin C) 500 MG CAPSULE.ER 1 Capsule ORAL DAILY Comments: NOT GIVEN Vitamin E (Dl,Tocopheryl Acet) (Vitamin E) 400 UNIT CAPSULE 1 Capsule ORAL DAILY Comments: NOT GIVEN Cholecalciferol (Vitamin D3) (Vitamin D) 1,000 UNIT TABLET 1 Tablet ORAL DAILY Comments: NOT GIVEN Lutein (Lutein) 20 MG CAPSULE 20 Milligram ORAL DAILY Comments: NOT GIVEN Cyanocobalamin (Vitamin B-12) (Vitamin B-12) 500 MCG TABLET Unknown Dose ORAL DAILY Comments: NOT GIVEN Psyllium Husk/Aspartame (Metamucil Sugar-Free Powder) 3.4 GRAM/5.8 GRAM POWDER 1 Tablespoonful ORAL TAKE AT BEDTIME Comments: NOT GIVEN Start taking the following new medications: Clopidogrel Bisulfate (Plavix) 75 MG TABLET 1 Tablet ORAL DAILY Qty = 30 No Refills Comments: Last Taken:08/07/17 Time:927 Aspirin (Aspirin*) 81 MG TAB.CHEW 1 Tablet ORAL DAILY Qty = 30 No Refills Comments: Last Taken:08/07/17 Time:927 Copies To: Dee WATSON,Angelo Stat[place]; Geneva Anderson MD
--- NOTE | 2017-08-07 11:12 | Patient Discharge Instructions ---
Discharge Instructions General Discharge Information You were seen/treated for: NSTEMI Watch for these problems: Please return to the ER in case of any recurrent chest pain, shortness of breath or palpitations. Special Instructions: 1. You are being transferred to [facility] for cardiac catheterization 2. Follow-up with your sql engineer Dr. Anderson within 1 week of discharge 3. Follow-up with your primary care physician Dr. Price within 1 week of discharge Diet Continue normal diet: Yes Recommended Diet: Diabetic, Heart Healthy Activity Full Activity/No Limits: No Activity Self Limited: Yes Acute Coronary Syndrome Inclusion Criteria At DC or during hospital stay patient has or had the following: ACS DIAGNOSIS Yes Discharge Core Measures Meds if any: Prescribed or Continued at Discharge DAMIAN/ARB if EF <40% No (EF 65%) Aspirin Yes Beta-Brian Yes Statin Yes Meds if any: NOT Prescribed or Continued at Discharge Congestive Heart Failure Inclusion Criteria At DC or during hospital stay patient has or had the following: CHF DIAGNOSIS No Discharge Core Measures Meds if any: Prescribed or Continued at Discharge Meds if any: NOT Prescribed or Continued at Discharge Cerebrovascular accident Inclusion Criteria At DC or during hospital stay patient has or had the following: CVA/TIA Diagnosis No Discharge Core Measures Meds if any: Prescribed or Continued at Discharge Meds if any: NOT Prescribed or Continued at Discharge Venous thromboembolism Inclusion Criteria VTE Diagnosis No VTE Type NONE VTE Confirmed by (Test) NONE Discharge Core Measures - Per Current guidelines, there needs to be overlap - treatment for the first 5 days of Warfarin therapy. - If discharged on Warfarin prior to 5 days of - overlap therapy, the patient will need to be - assessed for post discharge needs including - *Post discharge parental anticoagulation - *Warfarin and/or parental anticoagulation education - *Follow up date to check INR post discharge At least 5 days overlap therapy as Inpatient No Meds if any: Prescribed or Continued at Discharge Note: Overlap Therapy is Warfarin and Anticoagulant Meds if any: NOT Prescribed or Continued at Discharge
--- NOTE | 2017-08-07 13:24 | PN- Pulmonary ---
Subjective HPI/Critical Care Issues: Doing well stable Objective Current Medications: Current Medications Sig/Santo Start time Last Medication Dose Route Stop Time Status Admin Aspirin 81 MG DAILY 08/05 1000 DCD 08/07 PO 0928 Atorvastatin Calcium 10 MG 1700 08/04 2245 DCD 08/06 PO 1803 Clopidogrel Bisulfate 75 MG DAILY 08/06 1000 DCD 08/07 PO 0928 Dextrose/Sodium 1,000 ML Q20H 08/06 2330 DCD 08/07 Ch[place]ide IV 0030 Fish Oil 1,050 MG DAILY 08/04 2105 DCD 08/07 PO 0928 Heparin Sodium 2,500 UNIT ONCE ONE 08/07 0615 DC 08/07 (Porcine) IV 08/07 0616 0601 Heparin Sodium 2,500 UNIT ONCE ONE 08/06 1700 DC 08/06 (Porcine) IV 08/06 170 1807 Heparin Sodium 5,000 UNIT .STK-MED ONE 08/06 1659 DC (Porcine) IV 08/06 1700 Heparin Sodium 25,000 UNIT Q24H 08/04 1800 DCD 08/06 (Porcine) IV 1952 Sodium Chloride 500 ML Insulin Aspart 0 TIDAC 08/05 0800 DC 08/06 SC 1803 Insulin Human Regular 0 Q6 08/06 2359 DCD 08/07 SC 1155 Isosorbide 15 MG DAILY@0 08/05 2199 DCD 08/06 Mononitrate PO 205 Lidocaine 1 PAT DAILY 08/06 0130 DCD 08/07 EXT 0929 Lidocaine 1 PAT DAILY PRN 08/05 1815 DCD 08/07 EXT 0532 Metoprolol Tartrate 12.5 MG BID 08/04 2199 DCD 08/07 PO 09 Omeprazole 40 MG DAILY AC 08/05 0700 DCD 08/07 PO 0603 Oxybutynin Chloride 5 MG QPM 08/04 2200 DCD 08/06 PO 205 Polyethylene Glycol 17 GM DAILY 08/06 1647 DCD 08/07 PO 0929 Senna 187 MG AT BEDTIME 08/06 170 DCD 08/06 PO 205 Vital Signs & I&O Last 24 Hrs of Vitals and I&O: Vital Signs Date Time Temp Pulse Resp B/P B/P Pulse O2 O2 Flow FiO2 Mean Ox Delivery Rate 08/08 927 71 120/60 08/07 0702 99.0 71 20 120/60 97 Room Air 08/06 2250 97.9 73 18 122/60 98 Room Air 08/06 2057 68 122/58 08/06 2056 68 122/58 08/06 1600 98.0 68 18 124/62 98 Room Air 08/06 1458 97.5 67 18 122/58 98 Room Air Intake & Output 08/07 1600 08/07 0800 08/07 0000 Intake Total 280 245 Output Total Balance 280 245 Intake, IV 160 45 Intake, Oral 120 200 Patient 180 lb Weight Weight Bed scale Measurement Method Impression/Plan Impression/Plan Impression/Plan: General Appearance Alert, Oriented X3, Cooperative, No Acute Distress Skin No Rashes, No Breakdown, No Significant Lesion Skin Temp/Moisture Exam: Warm/Dry Sepsis Skin Exam (color): Normal for Ethnicity HEENT Atraumatic, PERRLA, EOMI, Mucous Membr. moist/pink Neck Supple, No JVD, No thryomegaly, +2 Carotid Pulse wo Bruit, No LAD Lymphatic Cervical nl Cardiovascular Regular Rate, Normal S1, Normal S2, No Murmurs, Gallops, Rubs Lungs Clear to Auscultation, Normal Air Movement Abdomen Normal Bowel Sounds, Soft, No Tenderness, No Hepatospenomegaly, No Masses Neurological Normal Speech, Strength at 5/5 X4 Ext, Normal Tone, Sensation Intact, Cranial Nerves 3-12 NL, Reflexes 2+ Extremities No Clubbing, No Cyanosis, No Edema, Normal Pulses, No Tenderness/ Swelling Vascular Normal Pulses, Pulses Symmetrical Rectal Guiac Negative IMPRESSION This is a lady with the history of GERD, chronic cough due to GERD, previous lung nodule which has been benign, diabetes type 2 on oral hypoglycemic agent, previous colon polyp and diverticulosis, previous nontoxic goiter, morbid obesity, hypertension, fibromyalgia, chronic bladder incontinence, spinal stenosis, previous history of nephrectomy, hypertension and on and off chest discomfort followed by cardiology on Imdur and low-dose metoprolol, now comes in with history of significant shaking chills at home with multiple episodes of vomiting. This morning she continued to have a queasy feeling in her abdomen and some lower chest discomfort. And she was advised to come to the emergency room. In the emergency room she did have a CTA of the chest which did not reveal any pulmonary embolism and her CT abdomen and pelvis was done which did not reveal any significant acute pathology. And patient was found to have elevated troponin with no significant EKG changes Issues * Elevated troponin with no significant EKG changes with occasional chest discomfort in a lady with diabetes. Prob Non-ST segment elevation ME, needs to be eval and cardio consult appretiated. for cardiac cath * HIstory of vomiting prior to admission lasting for 12 hours with shaking chills. Differential diagnosis is broad. Symptoms seem to have resolved. Patient may have had gastroenteritis versus other pathology. No evidence of sepsis at this time * Significant diverticulosis with some evidence suggestive of diverticulitis. But clinically she does not have any symptoms this needs to be watched and evaluated. We'll watch her off antibiotics * Previous history of nephrectomy, hypertension, chest discomfort, bladder incontinence, GERD, hyperlipidemia and nonsmoker. High risk for significant ischemic heart disease * Resolved Elevated bilirubin, imaging nil acute * Diabetes on oral hypoglycemics stable * Urinary incontinence rule out UTI * Previous history of spinal stenosis with surgery in the past, chronic pain, fibromyalgia which is stable * Lung nodule in the past which is also stable. RECOMMENDATIONS/PLAN For CARDIAC CATH Cont current meds\ Will follow
== END 2017-08-07 13:18 | disposition short-term general hospital (02) | DRG 282 ==
LOC: ERH 12:41 → 1NO 15:45 → ERHI 15:45 → ENRESERV 18:56 → ENTRNSPT 20:30 → EDTRNSPTSTS 20:47 → EDTRNSPT 20:47 → 1NO 21:02 → CMPTRNSPT 21:04 → CRI 21:04 → 1NO 08-06 07:47
PROVIDERS: Hospitalist; Internal Medicine; Internal Medicine Pulmonary Disease; Physician Assistant Medical; Student in an Organized Health Care Education/Training Program
DX: I21.4 Non-ST elevation (NSTEMI) myocardial infarction (principal); E11.9 Type 2 diabetes mellitus without complications; E66.01 Morbid (severe) obesity due to excess calories; E04.0 Nontoxic diffuse goiter; A08.4 Viral intestinal infection, unspecified; D72.819 Decreased white blood cell count, unspecified; E78.5 Hyperlipidemia, unspecified; K21.9 Gastro-esophageal reflux disease without esophagitis; M79.7 Fibromyalgia; R32 Unspecified urinary incontinence; R91.8 Other nonspecific abnormal finding of lung field; M47.899 Other spondylosis, site unspecified; M19.012 Primary osteoarthritis, left shoulder; M19.011 Primary osteoarthritis, right shoulder; Z68.30 Body mass index [BMI] 30.0-30.9, adult; I10 Essential (primary) hypertension; R05 Cough; I70.90 Unspecified atherosclerosis; K57.30 Diverticulosis of large intestine without perforation or abscess without bleeding; Z85.828 Personal history of other malignant neoplasm of skin; Z86.010 Personal history of colon polyps; Z98.1 Arthrodesis status; Z91.040 Latex allergy status; Z91.048 Other nonmedicinal substance allergy status; Z90.49 Acquired absence of other specified parts of digestive tract; Z90.710 Acquired absence of both cervix and uterus; Z90.5 Acquired absence of kidney; Z79.84 Long term (current) use of oral hypoglycemic drugs; Z87.891 Personal history of nicotine dependence
CPT/HCPCS: 1NP; CCU; 36415; 71045; 74176; 81001; 82436; 87040; 87086; 93005; 93010; 93306; 99291; J1644; J1815; J3490; J7042